=== PATIENT | male | born 1985 | race Caucasian/White ===

== ENCOUNTER → 2016-10-06 | Outpatient (CLI) | payer MEDICARE ==
[~2016-10-06] MED LIST: ACYCLOVIR400 MG PO; ALBUTEROL0.09 MG/A2 IH; AMOXICILLIN500 MG PO; ATARAX25 MG PO; ATIVAN1 MG PO; AUGMENTIN 500 M1 TAB PO; AUGMENTIN 875875 MG PO; BACTRIM DS 8001 TA1 PO; BENZTROPINE ME0.5 MG PO; CATAFLAM50 MG PO; CEFADROXIL500 M1 PO; CELEXA20 MG PO; CLEOCIN150 MG PO; CLINDAMYCIN HC300 MG PO; COGENTIN PO; COGENTIN0.5 MG PO; CORDROL20 MG PO; Cogentin0.5 MG PO; GEODON40 MG PO; HYDROCODONE BIT1 T11 PO; KEFLEX500 MG PO; LATUDA PO; MECLIZINE HCL25 M2 PO; MOTRIN800 MG PO; NAPROSYN500 MG PO; ONDANSETRON4 MG PO; PEPCID20 MG PO; PHENERGAN W/ DE30 ML PO; PREDNICOT10 MG PO; PREDNICOT20 MG PO; PREDNISONE20 MG PO; PRILOSEC20 M2 PO; PROAIR HFA0.09 MG/AC INH; RISPERDAL0.5 MG PO; TRAZADONE PO; TRAZODONE50 MG PO; ULTRAM50 MG PO; VALTREX1 GM PO; VICODIN 5/500 505 MG PO; VISTARIL25 MG PO; ZOFRAN ODT4 MG SL; ZOFRAN4 MG PO; ZYPREXA20 M1 PO; ZYPREXA20 MG PO; ZYRTEC10 M2 PO; Zofran4 MG PO
[2016-10-06 14:49] LABS: BASO # 0.1 10*3/uL (0.0-0.1); BASO % 0.6 % (0.0-1.0); EOS # 0.2 10*3/uL (0.0-0.4); EOS % 2.1 % (1.0-4.0); HEMATOCRIT 50.1 % (42.0-52.0); HEMOGLOBIN 16.4 g/dl (14.0-18.0); LYMPH # 2.7 10*3/uL (1.3-4.4); LYMPH % 31.3 % (27.0-41.0); MEAN CELL VOLUME 87.7 fl (80.0-94.0); MEAN CORPUSCULAR HGB 28.7 pg (27.0-31.0); MEAN CORPUSCULAR HGB CONC 32.7 g/dl (33.0-37.0); MEAN PLATELET VOLUME 11.1 fl (9.6-12.3); MONO # 0.6 10*3/uL (0.1-1.0); MONO % 7.4 % (3.0-9.0); NEUT % 58.1 % (47.0-73.0); PLATELET COUNT AUTOMATED 221 10*3/uL (130-400); RED BLOOD COUNT 5.71 10*6/uL (4.50-5.90); WHITE BLOOD COUNT 8.7 10*3/uL (4.8-10.8)
[2016-10-06 15:14] LABS: ALBUMIN 3.8 gm/dl (3.1-4.5); ALKALINE PHOSPHATASE 130 U/L (45-117); BILIRUBIN, DIRECT < 0.1 mg/dL (0.0-0.2); BILIRUBIN, TOTAL 0.4 mg/dl (0.2-1.0); BUN 8 mg/dl (7-24); CARBON DIOXIDE 30 mmol/L (21-32); CHLORIDE 107 mmol/L (98-107); CHOLESTEROL 158 mg/dL (<200); EST GLOM FILT AFRICAN AMERICAN > 60 ml/min; FREE T4 0.97 ng/dl (0.76-1.46); GLUCOSE 84 mg/dL (65-99); HDL CHOLESTEROL 38 mg/dl (40-60); LDL CHOLESTEROL 99 mg/dL (9-159); POTASSIUM 4.3 mmol/L (3.5-5.1); SGOT/AST 20 IU/L (3-35); SGPT/ALT 37 U/L (12-78); SODIUM 142 mmol/L (136-145); T3 UPTAKE 29 % (31-39); THYROID STIM HORMONE (HS) 0.711 uIU/ml (0.358-4.75); TOTAL PROTEIN 7.1 gm/dL (6.4-8.2); TRIGLYCERIDES 103 mg/dl (<150); VLDL CHOLESTEROL 21 mg/dL (6-40)
[2016-10-06 15:26] LABS: HEMOGLOBIN A1c 5.4 % (4.8-5.6)
== END | disposition home or self-care (01) ==
LOC: LAB 13:49
PROVIDERS: Nurse Practitioner Family
DX: Z79.899 Other long term (current) drug therapy (principal)

== ENCOUNTER 2017-05-26 01:52 | Emergency (ER) | payer MEDICARE ==
[~2017-05-26] VITALS: Ht 167.6 cm; Wt 83.9 kg
[2017-05-26] MEDS ORDERED: BACTRIM 400-801 EACH PO (02:14)
[2017-05-26] MEDS ORDERED: VIBRAMYCIN100 MG PO (02:15)
[2017-05-26] MEDS ORDERED: Motrin,Rufen800 MG PO (02:15)
== END 2017-05-26 02:32 | disposition home or self-care (01) ==
LOC: ED 01:52
DX: L02.415 Cutaneous abscess of right lower limb (principal); F12.10 Cannabis abuse, uncomplicated; Z79.899 Other long term (current) drug therapy; Z88.8 Allergy status to other drugs, medicaments and biological substances

== ENCOUNTER 2017-08-05 16:15 | Emergency (ER) | payer MEDICARE ==
[~2017-08-05] VITALS: Ht 167.6 cm; Wt 83.9 kg
[~2017-08-05 16:15] MED LIST changes: +BACTRIM 400-801 EACH PO; +Motrin,Rufen800 MG PO; +VIBRAMYCIN100 MG PO
== END 2017-08-05 16:26 | disposition home or self-care (01) ==
LOC: ED 16:15
DX: Z11.8 Encounter for screening for other infectious and parasitic diseases (principal); R03.0 Elevated blood-pressure reading, without diagnosis of hypertension; F17.200 Nicotine dependence, unspecified, uncomplicated; F10.10 Alcohol abuse, uncomplicated; F20.9 Schizophrenia, unspecified; F41.9 Anxiety disorder, unspecified; Z79.899 Other long term (current) drug therapy; Z88.8 Allergy status to other drugs, medicaments and biological substances

== ENCOUNTER 2017-10-30 22:50 | Emergency (ER) | payer MEDICARE ==
[~2017-10-30] VITALS: Ht 170.1 cm; Wt 86.2 kg
[2017-10-30 23:42] LABS: BASO # 0.1 10*3/uL (0.0-0.1); BASO % 0.5 % (0.0-1.0); EOS # 0.1 10*3/uL (0.0-0.4); HEMATOCRIT 46.1 % (42.0-52.0); HEMOGLOBIN 15.7 g/dl (14.0-18.0); LYMPH # 2.6 10*3/uL (1.3-4.4); LYMPH % 18.1 % (27.0-41.0); MEAN CELL VOLUME 86.3 fl (80.0-94.0); MEAN CORPUSCULAR HGB 29.4 pg (27.0-31.0); MEAN CORPUSCULAR HGB CONC 34.1 g/dl (33.0-37.0); MEAN PLATELET VOLUME 10.9 fl (9.6-12.3); MONO # 1.1 10*3/uL (0.1-1.0); MONO % 7.4 % (3.0-9.0); NEUT # 10.6 10*3/uL (2.3-7.9); NEUT % 72.5 % (47.0-73.0); PLATELET COUNT AUTOMATED 183 10*3/uL (130-400); RED BLOOD COUNT 5.34 10*6/uL (4.50-5.90); WHITE BLOOD COUNT 14.6 10*3/uL (4.8-10.8)
[2017-10-30 23:48] LABS: BILIRUBIN NEGATIVE (NEGATIVE); BLOOD NEGATIVE (NEGATIVE); CLARITY CLEAR (CLEAR); COLOR YELLOW (YELLOW); GLUCOSE NEGATIVE (NEGATIVE); KETONE NEGATIVE (NEGATIVE); LEUKO ESTERASE NEGATIVE (NEGATIVE); NITRITE NEGATIVE (NEGATIVE); PH 6.5 (5.0-9.0); UROBILINOGEN 0.2 E.U./dl (0.2-1.0)
[2017-10-30 23:53] LABS: BUN 8 mg/dl (7-24); CHLORIDE 103 mmol/L (98-107); CREATININE 0.87 mg/dL (0.70-1.30); SODIUM 137 mmol/L (136-145)
[2017-10-30 23:53] LABS: WBC 0-2 wbc/hpf (0-5)
[2017-10-30 23:54] LABS: ACETAMINOPHEN (TYLENOL) < 2.0 ug/ml (10-30); ETHYL ALCOHOL < 3.0 mg/dl (<3)
[2017-10-31 00:01] LABS: URINE AMPHETAMINES < 1000 (1000ng/ml); URINE BARBITURATES < 200 (200ng/ml); URINE BENZODIAZEPINES < 200 (200ng/ml); URINE CANNABINOIDS (THC) > 50 (50ng/ml); URINE COCAINE < 300 (300ng/ml); URINE METHADONE < 300 (300ng/ml); URINE OPIATES < 300 (300ng/ml)
[2017-10-31 00:07] LABS: URINE PHENCYCLIDINE < 25 (25ng/ml)
== END 2017-10-31 12:22 | disposition home or self-care (01) ==
LOC: ED 22:50
PROVIDERS: Emergency Medicine Emergency Medical Services
DX: R44.3 Hallucinations, unspecified (principal); F41.9 Anxiety disorder, unspecified; F20.9 Schizophrenia, unspecified; F17.200 Nicotine dependence, unspecified, uncomplicated; Z88.8 Allergy status to other drugs, medicaments and biological substances

== ENCOUNTER 2017-11-02 16:09 | Emergency (ER) | payer MEDICARE ==
[~2017-11-02] VITALS: Ht 167.6 cm; Wt 83.9 kg
[2017-11-02 16:44] LABS: BASO % 0.3 % (0.0-1.0); EOS % 0.1 % (1.0-4.0); HEMATOCRIT 49.2 % (42.0-52.0); HEMOGLOBIN 16.9 g/dl (14.0-18.0); LYMPH # 1.9 10*3/uL (1.3-4.4); LYMPH % 12.8 % (27.0-41.0); MEAN CORPUSCULAR HGB 29.2 pg (27.0-31.0); MEAN CORPUSCULAR HGB CONC 34.3 g/dl (33.0-37.0); MEAN PLATELET VOLUME 10.8 fl (9.6-12.3); MONO % 6.6 % (3.0-9.0); NEUT # 11.9 10*3/uL (2.3-7.9); NEUT % 79.7 % (47.0-73.0); PLATELET COUNT AUTOMATED 220 10*3/uL (130-400); RED BLOOD COUNT 5.79 10*6/uL (4.50-5.90); WHITE BLOOD COUNT 14.9 10*3/uL (4.8-10.8)
[2017-11-02 16:53] LABS: BILIRUBIN 1+ (NEGATIVE); BLOOD NEGATIVE (NEGATIVE); CLARITY CLEAR (CLEAR); COLOR YELLOW (YELLOW); GLUCOSE NEGATIVE (NEGATIVE); KETONE 1+ (NEGATIVE); LEUKO ESTERASE NEGATIVE (NEGATIVE); NITRITE NEGATIVE (NEGATIVE); SPECIFIC GRAVITY 1.015 (1.005-1.030); UROBILINOGEN 0.2 E.U./dl (0.2-1.0)
[2017-11-02 16:58] LABS: ALBUMIN 4.1 gm/dl (3.1-4.5); ALKALINE PHOSPHATASE 137 U/L (45-117); BUN 10 mg/dl (7-24); CHLORIDE 103 mmol/L (98-107); POTASSIUM 3.8 mmol/L (3.5-5.1); SGOT/AST 20 IU/L (3-35); SGPT/ALT 42 U/L (12-78); SODIUM 135 mmol/L (136-145)
[2017-11-02 17:02] LABS: URINE AMPHETAMINES < 1000 (1000ng/ml); URINE BARBITURATES < 200 (200ng/ml); URINE BENZODIAZEPINES < 200 (200ng/ml); URINE CANNABINOIDS (THC) > 50 (50ng/ml); URINE COCAINE < 300 (300ng/ml); URINE METHADONE < 300 (300ng/ml); URINE OPIATES < 300 (300ng/ml)
[2017-11-02 17:03] LABS: URINE PHENCYCLIDINE < 25 (25ng/ml)
[2017-11-02 17:15] LABS: ETHYL ALCOHOL < 3.0 mg/dl (<3)
[2017-11-02 17:17] LABS: BACTERIA TRACE; MUCOUS 1+
[2017-11-02] MEDS ORDERED: SERTRALINE HYDR50 MG PO (17:58)
[2017-11-02] MEDS ORDERED: OLANZAPINE20 M2 PO (17:58)
== END 2017-11-03 05:18 | disposition home health service (06) ==
LOC: ED 16:09
PROVIDERS: Emergency Medicine
DX: F23 Brief psychotic disorder (principal); F17.200 Nicotine dependence, unspecified, uncomplicated; F20.9 Schizophrenia, unspecified; F31.9 Bipolar disorder, unspecified; F41.9 Anxiety disorder, unspecified; F12.10 Cannabis abuse, uncomplicated; Z79.899 Other long term (current) drug therapy; Z88.8 Allergy status to other drugs, medicaments and biological substances; Z88.6 Allergy status to analgesic agent

== ENCOUNTER 2017-11-25 17:19 | Emergency (ER) | payer MEDICARE ==
[~2017-11-25] VITALS: Ht 167.6 cm; Wt 74.8 kg
[~2017-11-25 17:19] MED LIST changes: +OLANZAPINE20 M2 PO; +SERTRALINE HYDR50 MG PO
[2017-11-25] MEDS ORDERED: THORAZINE50 MG PO (17:31)
[2017-11-25] MEDS ORDERED: DEPAKOTE ER500 MG PO (17:31)
[2017-11-25] MEDS ORDERED: ZYPREXA15 M1 PO (17:31)
[2017-11-25] MEDS ORDERED: Lopressor25 MG PO (17:32)
[2017-11-25 17:52] LABS: BASO % 0.3 % (0.0-1.0); EOS # 0.1 10*3/uL (0.0-0.4); EOS % 0.8 % (1.0-4.0); HEMATOCRIT 45.4 % (42.0-52.0); HEMOGLOBIN 15.4 g/dl (14.0-18.0); LYMPH # 2.4 10*3/uL (1.3-4.4); MEAN CELL VOLUME 87.8 fl (80.0-94.0); MEAN CORPUSCULAR HGB 29.8 pg (27.0-31.0); MEAN CORPUSCULAR HGB CONC 33.9 g/dl (33.0-37.0); MEAN PLATELET VOLUME 10.8 fl (9.6-12.3); MONO # 1.1 10*3/uL (0.1-1.0); NEUT # 7.7 10*3/uL (2.3-7.9); NEUT % 67.2 % (47.0-73.0); PLATELET COUNT AUTOMATED 234 10*3/uL (130-400); RED BLOOD COUNT 5.17 10*6/uL (4.50-5.90); RED CELL DISTRI WIDTH 13.2 % (0-14.5); WHITE BLOOD COUNT 11.4 10*3/uL (4.8-10.8)
[2017-11-25 18:08] LABS: BUN 7 mg/dl (7-24); CHLORIDE 108 mmol/L (98-107); CREATININE 1.01 mg/dL (0.70-1.30); POTASSIUM 3.9 mmol/L (3.5-5.1); SODIUM 140 mmol/L (136-145)
[2017-11-25 18:09] LABS: ACETAMINOPHEN (TYLENOL) < 2.0 ug/ml (10-30); ETHYL ALCOHOL < 3.0 mg/dl (<3)
[2017-11-25 18:28] LABS: BILIRUBIN NEGATIVE (NEGATIVE); BLOOD NEGATIVE (NEGATIVE); CLARITY CLOUDY (CLEAR); COLOR YELLOW (YELLOW); GLUCOSE NEGATIVE (NEGATIVE); KETONE TRACE (NEGATIVE); LEUKO ESTERASE NEGATIVE (NEGATIVE); NITRITE NEGATIVE (NEGATIVE); UROBILINOGEN 0.2 E.U./dl (0.2-1.0)
[2017-11-25 18:34] LABS: BACTERIA 2+; WBC 0-2 wbc/hpf (0-5)
[2017-11-25 18:35] LABS: URINE AMPHETAMINES < 1000 (1000ng/ml); URINE BARBITURATES < 200 (200ng/ml); URINE BENZODIAZEPINES < 200 (200ng/ml); URINE CANNABINOIDS (THC) > 50 (50ng/ml); URINE COCAINE < 300 (300ng/ml); URINE METHADONE < 300 (300ng/ml); URINE OPIATES < 300 (300ng/ml)
[2017-11-25 18:36] LABS: URINE PHENCYCLIDINE < 25 (25ng/ml)
== END 2017-11-26 11:34 | disposition home health service (06) ==
LOC: ED 17:19
PROVIDERS: Emergency Medicine
DX: R45.851 Suicidal ideations (principal); F17.200 Nicotine dependence, unspecified, uncomplicated; Z88.8 Allergy status to other drugs, medicaments and biological substances; Z79.899 Other long term (current) drug therapy

== ENCOUNTER 2017-12-27 21:56 | Emergency (ER) | payer MEDICARE ==
[~2017-12-27] VITALS: Ht 167.6 cm; Wt 81.6 kg
[~2017-12-27 21:56] MED LIST changes: +DEPAKOTE ER500 MG PO; +Lopressor25 MG PO; +THORAZINE50 MG PO; +ZYPREXA15 M1 PO
[2017-12-27] MEDS ORDERED: PREDNISONE10 MG PO (23:34)
[2017-12-27] MEDS ORDERED: CYCLOBENZAPRINE5 M3 PO (23:34)
[2017-12-27] MEDS ORDERED: IBU800 MG PO (23:35)
[2017-12-27 23:38] LABS: BILIRUBIN NEGATIVE (NEGATIVE); BLOOD NEGATIVE (NEGATIVE); CLARITY CLEAR (CLEAR); COLOR YELLOW (YELLOW); GLUCOSE NEGATIVE (NEGATIVE); KETONE NEGATIVE (NEGATIVE); LEUKO ESTERASE NEGATIVE (NEGATIVE); NITRITE NEGATIVE (NEGATIVE); PH 7.5 (5.0-9.0); SPECIFIC GRAVITY <= 1.005 (1.005-1.030); UROBILINOGEN 0.2 E.U./dl (0.2-1.0)
[2017-12-27 23:49] LABS: BACTERIA TRACE; EPITHELIAL CELLS 0-2; RBC 0-2 rbc/hpf (0-2); WBC 0-2 wbc/hpf (0-5)
== END 2017-12-28 00:10 | disposition home or self-care (01) ==
LOC: ED 21:56
PROVIDERS: Nurse Practitioner
DX: M54.5 Low back pain (principal); Z71.6 Tobacco abuse counseling; Z88.8 Allergy status to other drugs, medicaments and biological substances; Z79.899 Other long term (current) drug therapy

== ENCOUNTER 2018-09-08 21:11 | Emergency (ER) | payer MEDICARE ==
[~2018-09-08] VITALS: Ht 170.1 cm; Wt 77.1 kg
--- NOTE | ~2018-09-08 | EKG ---
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
[~2018-09-08 21:11] MED LIST changes: +CYCLOBENZAPRINE5 M3 PO; +IBU800 MG PO; +PREDNISONE10 MG PO; +ZYPREXA10 M1 PO; -ZYPREXA15 M1 PO
[2018-09-08 21:40] LABS: BILIRUBIN NEGATIVE (NEGATIVE); BLOOD NEGATIVE (NEGATIVE); CLARITY CLEAR (CLEAR); COLOR YELLOW (YELLOW); GLUCOSE NEGATIVE (NEGATIVE); KETONE NEGATIVE (NEGATIVE); LEUKO ESTERASE NEGATIVE (NEGATIVE); NITRITE NEGATIVE (NEGATIVE); SPECIFIC GRAVITY 1.015 (1.005-1.030); UROBILINOGEN 0.2 E.U./dl (0.2-1.0)
[2018-09-08 21:49] LABS: URINE AMPHETAMINES < 1000 (1000ng/ml); URINE BARBITURATES < 200 (200ng/ml); URINE BENZODIAZEPINES < 200 (200ng/ml); URINE CANNABINOIDS (THC) > 50 (50ng/ml); URINE COCAINE < 300 (300ng/ml); URINE METHADONE < 300 (300ng/ml); URINE OPIATES < 300 (300ng/ml)
[2018-09-08 21:50] LABS: RBC 0-2 rbc/hpf (0-2); WBC 0-2 wbc/hpf (0-5)
[2018-09-08 21:50] LABS: BASO # 0.1 10*3/uL (0.0-0.1); BASO % 0.5 % (0.0-1.0); EOS % 0.2 % (1.0-4.0); HEMATOCRIT 48.6 % (42.0-52.0); HEMOGLOBIN 16.6 g/dl (14.0-18.0); LYMPH # 1.7 10*3/uL (1.3-4.4); LYMPH % 17.7 % (27.0-41.0); MEAN CELL VOLUME 85.4 fl (80.0-94.0); MEAN CORPUSCULAR HGB 29.2 pg (27.0-31.0); MEAN CORPUSCULAR HGB CONC 34.2 g/dl (33.0-37.0); MEAN PLATELET VOLUME 10.6 fl (9.6-12.3); MONO # 0.8 10*3/uL (0.1-1.0); MONO % 8.2 % (3.0-9.0); NEUT # 6.9 10*3/uL (2.3-7.9); NEUT % 73.1 % (47.0-73.0); PLATELET COUNT AUTOMATED 248 10*3/uL (130-400); RED BLOOD COUNT 5.69 10*6/uL (4.50-5.90); RED CELL DISTRI WIDTH 12.3 % (0-14.5); WHITE BLOOD COUNT 9.4 10*3/uL (4.8-10.8)
[2018-09-08 21:51] LABS: URINE PHENCYCLIDINE < 25 (25ng/ml)
[2018-09-08 22:03] LABS: ACETAMINOPHEN (TYLENOL) < 5.0 ug/ml (10-30); ALBUMIN 4.2 gm/dl (3.1-4.5); ALKALINE PHOSPHATASE 134 U/L (45-117); BUN 7 mg/dl (7-24); CHLORIDE 108 mmol/L (98-107); CPK 111 U/L (39-308); CREATININE 0.97 mg/dL (0.70-1.30); ETHYL ALCOHOL < 3.0 mg/dl (<3); POTASSIUM 3.9 mmol/L (3.5-5.1); SGOT/AST 22 IU/L (3-35); SGPT/ALT 41 U/L (12-78); SODIUM 138 mmol/L (136-145)
== END 2018-09-09 12:50 | disposition home health service (06) ==
LOC: ED 21:11
PROVIDERS: Emergency Medicine
DX: F25.9 Schizoaffective disorder, unspecified (principal); F31.9 Bipolar disorder, unspecified; F17.200 Nicotine dependence, unspecified, uncomplicated; Z88.8 Allergy status to other drugs, medicaments and biological substances; Z79.899 Other long term (current) drug therapy

== ENCOUNTER 2018-09-24 20:49 | Inpatient (IN) | payer MEDICARE ==
[~2018-09-24] VITALS: Ht 170.2 cm; Wt 87.3 kg
--- NOTE | ~2018-09-24 | PR ---
[place], [place] PROGRESS NOTE NAME: JOE DIAZ UNIT #: [id number] ROOM: [place] [address] DOCTOR: LEONA, PHD BRYCE BIRTHDATE: [birth year] DOS: I met with the patient for followup. He reports continued voices. Mood was stable and affect was blunted. He denied suicidal or homicidal ideation. He is agreeable to be transferred to inpatient psychiatric facility. He reported no concerns at this time. Kirstin Martinez, PhD CM:HUEY [phone] PHD BRYCE MARTINEZ 09/29/18 0021 interface
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
--- NOTE | ~2018-09-24 | PR ---
[place], [place] PROGRESS NOTE [id number] UNIT #: [id number] ROOM: [place] [address] DOCTOR: LEONA, PHD BRYCE BIRTHDATE: [birth year] DOS: 09/26/2018 SUBJECTIVE: The patient reports a decrease in hearing voices since starting Invega. He appeared to be somewhat vague in reporting his symptoms as he stated he does not want to remain in the hospital. He is here involuntarily; however, he denied current suicidal or homicidal ideations. Discussed the patient's thoughts about inpatient treatment, utilized CBT and supportive therapy interventions. He was somewhat receptive to feedback. We will continue to follow. Kirstin Martinez, PhD CM:HUEY [id number] PHD BRYCE MARTINEZ 09/28/18 0852 interface
--- NOTE | ~2018-09-24 | PR ---
[place], [place] PROGRESS NOTE NAME: JOE DIAZ UNIT #: [id number] ROOM: [place] [address] DOCTOR: LEONA, PHD WU BIRTHDATE: [birth year] DOS: 09/27/2018 SUMMARY: Followed up with the patient. He reports the voices continue to be not as bothersome; however, he was noted to be responding to internal stimuli earlier this morning by his nurse. He was vague and guarded and stated he did not want to talk about what was bothering him today. We will continue to follow. Kirstin Martinez, PhD CM:HUEY [id number] PHD BRYCE MARTINEZ 09/28/18 0432 interface
--- NOTE | ~2018-09-24 | EKG ---
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
[2018-09-24 20:53] VITALS: BP 150/96
[2018-09-24 21:10] LABS: HEMATOCRIT 46.4 % (42.0-52.0); HEMOGLOBIN 16.1 g/dl (14.0-18.0); MEAN CELL VOLUME 85.6 fl (80.0-94.0); MEAN CORPUSCULAR HGB 29.7 pg (27.0-31.0); MEAN CORPUSCULAR HGB CONC 34.7 g/dl (33.0-37.0); MEAN PLATELET VOLUME 10.3 fl (9.6-12.3); PLATELET COUNT AUTOMATED 255 10*3/uL (130-400); RED BLOOD COUNT 5.42 10*6/uL (4.50-5.90); RED CELL DISTRI WIDTH 12.1 % (0-14.5); WHITE BLOOD COUNT 24.7 10*3/uL (4.8-10.8)
--- NOTE | 2018-09-24 21:15 | NUR ---
PT HEARING VOICES,TALKING ABOUT DIVORCE,THEN SAYING ABOUT A WARRANT OUT FOR HIS ARREST (WHICH NOVELTY CHAIN MAKER PIERRE SAID IS NOT TRUE). HE STATES HE HASN'T ATE FOR 3 DAYS. 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 PT DOES NOT WANT ANY FAMILY/FRIENDS NOTIFIED THAT HE IS HERE. PT PLACE IN RM 2 IN EYE VIEW OF [facility] STATION. CORDS THAT ARE ABLE TO BE REMOVED FROM THE ROOM HAVE BEEN REMOVED.--NICOLE MOROCHO RN
[2018-09-24 21:20] VITALS: BP 152/97
[2018-09-24 21:29] LABS: ALBUMIN 4.2 gm/dl (3.1-4.5); ALKALINE PHOSPHATASE 107 U/L (45-117); ATYPICAL LYMPHS 2 % (0-0); BASOPHILS 1 % (0-1); BUN 14 mg/dl (7-24); CHLORIDE 97 mmol/L (98-107); CREATININE 1.22 mg/dL (0.70-1.30); PLATELET SUFFICIENCY NORMAL (NORMAL); POTASSIUM 3.5 mmol/L (3.5-5.1); SGOT/AST 79 IU/L (3-35); SGPT/ALT 42 U/L (12-78); SODIUM 133 mmol/L (136-145); TOTAL CELLS COUNTED 100 #CELLS; TOTAL PROTEIN 7.8 gm/dL (6.4-8.2)
[2018-09-24 21:31] LABS: ETHYL ALCOHOL < 3.0 mg/dl (<3)
[2018-09-24 21:32] LABS: ACETAMINOPHEN (TYLENOL) < 5.0 ug/ml (10-30)
[2018-09-24 22:10] LABS: BILIRUBIN NEGATIVE (NEGATIVE); BLOOD NEGATIVE (NEGATIVE); CLARITY SL CLOUDY (CLEAR); COLOR YELLOW (YELLOW); GLUCOSE NEGATIVE (NEGATIVE); KETONE 2+ (NEGATIVE); LEUKO ESTERASE NEGATIVE (NEGATIVE); NITRITE NEGATIVE (NEGATIVE); UROBILINOGEN 0.2 E.U./dl (0.2-1.0)
[2018-09-24 22:19] LABS: BACTERIA 1+; MUCOUS 2+
[2018-09-24 22:20] LABS: URINE AMPHETAMINES < 1000 (1000ng/ml); URINE BARBITURATES < 200 (200ng/ml); URINE BENZODIAZEPINES < 200 (200ng/ml); URINE CANNABINOIDS (THC) > 50 (50ng/ml); URINE COCAINE < 300 (300ng/ml); URINE METHADONE < 300 (300ng/ml); URINE OPIATES < 300 (300ng/ml)
[2018-09-24 22:21] LABS: URINE PHENCYCLIDINE < 25 (25ng/ml)
--- NOTE | 2018-09-24 22:22 | NUR ---
PT CONTINUES TO HEAR VOICES "THEY WANT ME TO TURN MYSELF IN,THEY ARE GOING TO HANG ME". PT TEARFUL AT TIMES,PACING IN ROOM. PT REASSURED NEEDED,REORIENTED IV FLUIDS STARTED AND IV BENADRYL GIVEN.SIDERAILS UP X2.-NICOLE MOROCHO RN
--- NOTE | 2018-09-24 22:25 | NUR ---
IV ATIVAN GIVEN ALSO.SEE EMAR. PT MOVED TO ROOM 5,CLOSER VIEW FROM [facility] STATION AND FOR PT TO HAVE A TV. HE DID EAT ABOUT 50% OF FOOD TRAY.PARESH HERNANDEZ HAS BEEN NOTIFIED OF THIS PT AND WILL BE IN TO SEE HIM TOMORROW.-NICOLE MOROCHO RN
[2018-09-24 22:40] LABS: ACT PARTIAL THROMBO TIME 27.5 SECONDS (20.8-31.5); INTERNATIONAL NORM RATIO 1.1 (2.0-3.5)
[2018-09-24 22:49] LABS: TROPONIN I 0.1 ng/ml (<0.045)
--- NOTE | 2018-09-24 22:50 | NUR ---
LAB CALLED WITH CRITICAL TROPONIN OF 0.100. DOCTOR NOTIFIED.
[2018-09-24 23:29] VITALS: BP 139/90
[2018-09-25] VITALS (7 sets, daily range): BP systolic 107–129; BP diastolic 60–77
--- NOTE | 2018-09-25 00:15 | NUR ---
PT WATCHING TV---NICOLE MOROCHO RN
[2018-09-25] MEDS ORDERED: BENZTROPINE MESY1 MG PO (00:48)
--- NOTE | 2018-09-25 01:00 | NUR ---
A 33, admitted to ICCU, under the services of JAZMIN Mitchell DO with a diagnosis of SIRS, RHABDOMYOLYSIS, SUICIDE ATTEMPT.. Chief complaint is VOICES TRYING TO CONVINCE HIM TO KILL HIMSELF. Patient arrived via stretcher from ER. Monitor applied. Initial assessment completed. Vital signs taken and recorded. JAZMIN MITCHELL DO notified of admission to the unit. Orders received. See assessment for past medical history, medications and allergies. Patient and/or family oriented to unit. [facility] ICCU visitation policy reviewed. Clothing/patient valuable form completed. ELVIE DAVIS
--- NOTE | 2018-09-25 02:26 | NUR ---
[facility] NOTIFIED OF CONSULT AND PARESH RODRIGUEZ NOTIFIED BY ER FOR HER CONSULT. ELVIE DAVIS RN
[2018-09-25 06:27] LABS: BASO # 0.1 10*3/uL (0.0-0.1); BASO % 0.4 % (0.0-1.0); EOS % 0.1 % (1.0-4.0); HEMATOCRIT 38.8 % (42.0-52.0); HEMOGLOBIN 13.3 g/dl (14.0-18.0); LYMPH # 3.8 10*3/uL (1.3-4.4); LYMPH % 26.8 % (27.0-41.0); MEAN CELL VOLUME 85.3 fl (80.0-94.0); MEAN CORPUSCULAR HGB 29.2 pg (27.0-31.0); MEAN CORPUSCULAR HGB CONC 34.3 g/dl (33.0-37.0); MONO # 1.8 10*3/uL (0.1-1.0); MONO % 12.7 % (3.0-9.0); NEUT # 8.3 10*3/uL (2.3-7.9); NEUT % 59.5 % (47.0-73.0); PLATELET COUNT AUTOMATED 203 10*3/uL (130-400); RED BLOOD COUNT 4.55 10*6/uL (4.50-5.90); RED CELL DISTRI WIDTH 12.1 % (0-14.5)
[2018-09-25 06:53] LABS: ALBUMIN 2.9 gm/dl (3.1-4.5); BUN 9 mg/dl (7-24); CHLORIDE 107 mmol/L (98-107); CHOLESTEROL 132 mg/dL (<200); CREATININE 0.79 mg/dL (0.70-1.30); PHOSPHOROUS 2.3 mg/dL (2.5-4.9); POTASSIUM 3.3 mmol/L (3.5-5.1); SGOT/AST 61 IU/L (3-35); SGPT/ALT 32 U/L (12-78); SODIUM 139 mmol/L (136-145); TRIGLYCERIDES 88 mg/dl (<150); VLDL CHOLESTEROL 18 mg/dL (6-40)
[2018-09-25 07:07] LABS: ALKALINE PHOSPHATASE 79 U/L (45-117); HDL CHOLESTEROL 34 mg/dl (40-60); LDL CHOLESTEROL 80 mg/dL (9-159); TOTAL PROTEIN 6.1 gm/dL (6.4-8.2)
[2018-09-25 07:20] LABS: CPK 2630 U/L (39-308)
--- NOTE | 2018-09-25 10:44 | NUR ---
TROP CONTINUE CONTINUE TO BE ELEVATED
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
[2018-09-25] MEDS ORDERED: ZYPREXA15 M1 PO (13:06)
[2018-09-25] MEDS ORDERED: TRILEPTAL300 MG PO (13:09)
--- NOTE | 2018-09-25 13:35 | NUR ---
POISON CONTROL NOTIFIED OF PT ADMISSION, PT HAS TOLD THE RESIDENT THAT HE OD'D ON HIS ZYPREXA,DEPOKOTE AND TRILEPTA BEFORE HE CAME TO THE ER LAST NIGHT AT 9PM PER POISON CONTROL-ALL MEDS WOULD ALREADY BE 'OUT OF HIS SYSTEM" BUT GO AHEAD AND CHECK ASA,TYELNOL AND DEPOKOTE LEVELS
--- NOTE | 2018-09-25 14:10 | NUR ---
MEDS RECONCILED FROM TALKING TO NICOLE TIMMONS
[2018-09-25 14:17] LABS: ACETAMINOPHEN (TYLENOL) < 5.0 ug/ml (10-30)
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
[2018-09-26] VITALS: BP 130/83
[2018-09-26 04:00] VITALS: BP 130/79
[2018-09-26 07:46] LABS: BASO # 0.1 10*3/uL (0.0-0.1); BASO % 0.5 % (0.0-1.0); EOS % 0.4 % (1.0-4.0); HEMOGLOBIN 12.3 g/dl (14.0-18.0); LYMPH # 2.1 10*3/uL (1.3-4.4); LYMPH % 20.8 % (27.0-41.0); MEAN CELL VOLUME 87.3 fl (80.0-94.0); MEAN CORPUSCULAR HGB CONC 33.2 g/dl (33.0-37.0); MEAN PLATELET VOLUME 10.1 fl (9.6-12.3); MONO # 1.2 10*3/uL (0.1-1.0); MONO % 12.3 % (3.0-9.0); NEUT # 6.4 10*3/uL (2.3-7.9); NEUT % 64.9 % (47.0-73.0); PLATELET COUNT AUTOMATED 183 10*3/uL (130-400); RED BLOOD COUNT 4.24 10*6/uL (4.50-5.90); RED CELL DISTRI WIDTH 12.4 % (0-14.5); WHITE BLOOD COUNT 9.9 10*3/uL (4.8-10.8)
[2018-09-26 07:58] LABS: ALKALINE PHOSPHATASE 76 U/L (45-117); BUN 5 mg/dl (7-24); CHLORIDE 111 mmol/L (98-107); PHOSPHOROUS 2.3 mg/dL (2.5-4.9); POTASSIUM 3.6 mmol/L (3.5-5.1); SGOT/AST 58 IU/L (3-35); SGPT/ALT 57 U/L (12-78); SODIUM 143 mmol/L (136-145); TOTAL PROTEIN 6.1 gm/dL (6.4-8.2)
[2018-09-26 08:00] VITALS: BP 151/82
[2018-09-26 08:12] LABS: CPK 1087 U/L (39-308)
--- NOTE | 2018-09-26 08:31 | NUR ---
PT AAOX3. RESP EASY. VSS. PT DENIES C/O PAIN OR SOB. WHEN ASKED PT STATES HE STILL HEARS "THE VOICES" BUT NOT BAD. WHEN I ASKED WHAT THEY ARE TELLING HIM HE STATED THAT THEY WANT HIM TO ...THEY WANT TO KILL HIM. I ASKED HIM HOW THEY ARE GOING TO KILL HIM HE STATED "THEY ARE GOING TO RIP OUT MY BUTTHOLE AND PULL MY UNSIDES OUT." I THEN ASKED HIM HOW "THE VOICES" COULD ACTUALLY KILL HIM..VOICES CAN NOT PHYSICALLY HURT HIM. HE DID NOT HAVE AN ANSWER FOR THAT. WHEN I MENTIONED THAT HE MIGHT HAVE TO GO FOR INPATIENT PHYSCH. TREATMENT HE STATED THAT WOULD NOT BE GOOD FOR HIM. I THEN ASKED HIM WHY AND INPT WOULD NOT BE GOOD FOR HIM AND HE STATED "THE VOICES DO NOT WANT HIM TO GO." THEN I TOLD HIM THAT IF THE VOICES ARE TELLING HIM TO HURT HIMSELF HE NEEDS INPT PSYCH TO HELP HEM GET RID OF THE VOICES. HE THEN STATED "THE VOICES ARE NOT BAD NOW...I CAN GO HOME...I'LL BE FINE"
--- NOTE | 2018-09-26 11:01 | NUR ---
MEDICATED PT PER PRN ORDER WITH IV ATIVAN FOR PT'S INCREASED ANXIETY AND AGITATION. DR RABAGO IN TO SEE PT EARLIER AND DISCUSSED PLAN OF CARE WITH PT. PT STATES HE WANTS TO GO HOME. DR RABAGO EXPLAINED THAT PT HAS + BLOOD CULTURES SO THAT MEANS HE HAS AN INFECTION AND HE NEEDS ANTIBIOTICS. PT NOT HAPPY WITH THE ANSWER. HE ALSO WANTS A CIGG. DR RABAGO TO ORDER NICATROL INHALER FOR PT.
--- NOTE | 2018-09-26 11:26 | NUR ---
MEDICATED PT PER PRN ORDER WITH QingKe INHALER FOR PT'S C/O NICOTINE WITHDRAWL.
--- NOTE | 2018-09-26 11:30 | NUR ---
PT RESTING. EARLIER ATIVAN EFFECTIVE.
[2018-09-26 11:50] VITALS: BP 149/85
--- NOTE | 2018-09-26 12:00 | NUR ---
PT STATES THAT THE NICATROL INHALER WAS EFFECTIVE FOR HIS WITHDRAWL SYMPTOMS.
--- NOTE | 2018-09-26 15:52 | NUR ---
MEDICATED PT PER PRN ORDER WITH ATIVAN FOR PT'S INCREASED ANXIETY AND AGITATION.
[2018-09-26 16:00] VITALS: BP 150/90
--- NOTE | 2018-09-26 16:15 | NUR ---
DR FINNEGAN UPDATED ON PT'S BP 150/90. HE STATED HE WILL WATCH IT.
--- NOTE | 2018-09-26 16:19 | NUR ---
PT STATES SOME RELIEF OF EARLIER ANXIETY AND AGITATION WITH EARLIER ATIVAN.
--- NOTE | 2018-09-26 18:33 | NUR ---
PT STATED "WELL I GUESS I HAVE A SENTANCE AGAINST ME." I ASKED PT HOW HE CAME TO THIS CONCLUSION. PT STATED "THE VOICES ARE TELLING ME I HAVE A SENTANCE AGAINST ME." I ASKED WHO IS GOING TO KILL YOU? "THE VOICES" PT STATED. ONCE AGAIN I INFORMED THE PT THAT THE VOICES CAN NOT PHYSICALLY TOUCH HIM SO HOW ARE THEY GOING TO KILL HIM? HE STATED I DON'T KNOW.
[2018-09-26 20:00] VITALS: BP 161/95
--- NOTE | 2018-09-26 20:00 | NUR ---
PATIENT STATES THE VOICES WANT HIM ...INFORMED PATIENT HE IS IN HOSPITAL AND HE IS NOT GOING ANYWHERE TONIGHT.
--- NOTE | 2018-09-26 21:28 | NUR ---
MEDICATED WITH PRN ATIVAN PER ORDER NAD REQUEST.
[2018-09-27] VITALS: BP 145/80
[2018-09-27 04:00] VITALS: BP 132/84
[2018-09-27 05:00] LABS: ALBUMIN 2.6 gm/dl (3.1-4.5); BUN 6 mg/dl (7-24); CHLORIDE 111 mmol/L (98-107); CREATININE 0.78 mg/dL (0.70-1.30); POTASSIUM 3.6 mmol/L (3.5-5.1); SODIUM 143 mmol/L (136-145)
[2018-09-27 05:03] LABS: PHOSPHOROUS 3.7 mg/dL (2.5-4.9)
[2018-09-27 05:04] LABS: CPK 593 U/L (39-308)
[2018-09-27 08:00] VITALS: BP 146/84
--- NOTE | 2018-09-27 08:00 | NUR ---
PT AAOX3. VSS. PT CONTINUES TO HEAR VOICES. PT WAS CRYING AND APOLOGIZING TO THE VOICES FOR THINGS HE SAYS THAT HE SAID BUT DIDN'T MEAN. PT AGAIN ASKING WHEN HE CAN GO HOME. I INFORMED PT WE WOULD ASK DR BROWN WHEN HE COMES IN.
--- NOTE | 2018-09-27 08:00 | NUR ---
PT AAOX3. VSS. PT CONTINUES TO HEAR VOICES. PT CRYING AND UPSET EARLIER. PT WAS APOLOGIZING TO THE VOICES. WHEN ASKED WHAT IS WRONG ,PT STATED HE WAS APOLOGIZING FOR THINGS HE SAID IN HIS HEAD TO THE VOICES THAT HE DID NOT REALLY MEAN. PT AGAIN ASKING WHEN HE CAN GO HOME. I INFORMED HIM WE WOULD ASK THE DOCTOR WHEN HE MAKES ROUNDS.
--- NOTE | 2018-09-27 09:49 | NUR ---
DR FINNEGAN NOTIFIED EARLIER OF BLOOD CULTURE RESULTS.
--- NOTE | 2018-09-27 11:30 | NUR ---
PT STATING THAT "SOMETHING IS BOTHERING ME." HE STATES HE DOES NOT FEEL LIKE TALKING ABOUT IT AT THIS TIME. I OFFERED PT IV ATIVAN FOR HIS ANXIETY AND BIENG UPSET. HE REFUSED AT THIS TIME. DR DELGADILLO IN TO SEE PT AND PT REFUSED TO SPEAK ABOUT WHAT WAS BOTHERING HIM WITH HER ALSO. WILL CONTINUE TO MONITOR PT.
[2018-09-27 12:00] VITALS: BP 160/94
--- NOTE | 2018-09-27 12:03 | NUR ---
DR FINNEGAN UPDATED ON PT'S BP 160/94 AND PT'S STATING HE HAS SOMETHING BOTHERING HIM BUT DOES NOT WISH TO TALK ABOUT IT. DR FINNEGAN OREDRED TO GIVE PT IV ATIVAN. IV ATIVAN GIVEN TO PT AFTER UPDATING HIM ABOUT HIS INCREASED BP THAT COULD BE R/T PT'S BIENG UPSET. PT AGREED AT THIS TIME FOR THE ATIVAN.
--- NOTE | 2018-09-27 13:01 | NUR ---
PT RESTING. EARLIER ATIVAN SEEMS EFFECTIVE FOR EARLIER SYMPTOMS.
--- NOTE | 2018-09-27 13:34 | NUR ---
met with client, he is pink slipped to here for evaluation and has been evaluated here and determined that he should go to an inpatient psych unit when he is medically stable, i cannot make those arrangements until he is stable, i did speak with [facility] and they are not inclined to get involved because he is not a self pay, [facility] the cardiopulmonary technician relayed to me that he cant give me legal advice but suggested that we could renew the pink slip, which i have never known to be legal, but that is all that he could give me. i did speak with Rika freedman about the case several times today, i came to visit client and we talked about his feelings, he said that he is willing to stay to get medical clearance and then he agrees that i will find him psych bed, but he wavers back and forth. i explained to him that he needs to have care because he tried to harm himself and he is still hearing voices, he acknowledges that the voices are "messing with him: he tell me that he knows he did not harm anyone so he thinks that voices told him about that girl. client will just need reassurance. i did speak with dr espinsoa who said that they are working to medically clear him and they will call me as soon as he is, then once i get an accepting psychaitrist at another faciility then he can be pink slipped to that unit or i can ask him to sign a voluntary if that is what they request. i will look at [facility] to take him back as he was just there and recently dc from there and they typically have beds.
[2018-09-27 16:00] VITALS: BP 148/86
[2018-09-27 20:00] VITALS: BP 164/96
--- NOTE | 2018-09-27 20:20 | NUR ---
PT. RESTING IN BED. IVF INFUSING VIA RA, SITE ASYMPT. LUNGS CLEAR BUT DIMINISHED BILAT, PUOLSE OX 94% ON RA. ABDOMEN SOFT, NONDISTENDED AND NORMO. NO PERIPHERAL EDEMA NOTED. RESP. EASY AND REG NO DISTRESS. ELVIE DAVIS RN
[2018-09-28] VITALS: BP 157/91
[2018-09-28 04:00] VITALS: BP 162/91
[2018-09-28 05:01] LABS: BUN 4 mg/dl (7-24); CHLORIDE 110 mmol/L (98-107); CREATININE 0.92 mg/dL (0.70-1.30); POTASSIUM 3.6 mmol/L (3.5-5.1); SODIUM 143 mmol/L (136-145)
[2018-09-28 05:08] LABS: CPK 320 U/L (39-308)
[2018-09-28 08:00] VITALS: BP 158/100
--- NOTE | 2018-09-28 08:56 | NUR ---
DR FINNEGAN AWARE OF CONTINUED ELEVATED BP, AND WANTS PT TO HAVE IV ATIVAN AND HAS ORDERED ZESTRIL, PT HAS NOT BEEN AGITATED, REFUSES TO EAT-"NOT HUNGRY"
[2018-09-28 10:11] VITALS: BP 167/101
--- NOTE | 2018-09-28 12:09 | NUR ---
TO BE DISCHARGED TO INPATIENT MENTAL MAHIN
[2018-09-28] MEDS ORDERED: LISINOPRIL10 M1 PO (12:27)
[2018-09-28] MEDS ORDERED: PALIPERIDONE ER6 MG PO (12:27)
--- NOTE | 2018-09-28 15:52 | NUR ---
DISCHARGED WITH [facility] TO GO TO [facility] INPATIENT ALL BELONGINGS SENT WITH PT PT REFUSES PIC OF SCRATCH ON NOSE
== END 2018-09-28 16:12 | disposition home health service (06) | DRG 872 ==
LOC: ED 20:49 → EDHOLD 23:54 → ICCU 23:54
PROVIDERS: Internal Medicine; Internal Medicine Nephrology; Student in an Organized Health Care Education/Training Program; ADMIT Internal Medicine
DX: A41.9 Sepsis, unspecified organism (principal); E87.1 Hypo-osmolality and hyponatremia; E44.0 Moderate protein-calorie malnutrition; T79.6XXA Traumatic ischemia of muscle, initial encounter; D64.9 Anemia, unspecified; F41.9 Anxiety disorder, unspecified; F12.10 Cannabis abuse, uncomplicated; F31.9 Bipolar disorder, unspecified; E87.6 Hypokalemia; F25.9 Schizoaffective disorder, unspecified; E87.8 Other disorders of electrolyte and fluid balance, not elsewhere classified; R73.03 Prediabetes; F17.210 Nicotine dependence, cigarettes, uncomplicated; E83.39 Other disorders of phosphorus metabolism; T14.91XA Suicide attempt, initial encounter; X83.8XXA Intentional self-harm by other specified means, initial encounter; Y93.89 Activity, other specified; Y99.8 Other external cause status; Z71.6 Tobacco abuse counseling; Z82.3 Family history of stroke; Z81.8 Family history of other mental and behavioral disorders; Z88.8 Allergy status to other drugs, medicaments and biological substances; Z79.899 Other long term (current) drug therapy; Y92.098 Other place in other non-institutional residence as the place of occurrence of the external cause; Z83.3 Family history of diabetes mellitus; Z82.49 Family history of ischemic heart disease and other diseases of the circulatory system; Z68.30 Body mass index [BMI] 30.0-30.9, adult

== ENCOUNTER → 2019-01-31 | Outpatient (CLI) | payer MEDICARE ==
[~2019-01-31] MED LIST changes: +BENZTROPINE MESY1 MG PO; +LISINOPRIL10 M1 PO; +PALIPERIDONE ER6 MG PO; +TRILEPTAL300 MG PO; +ZYPREXA15 M1 PO
== END | disposition home or self-care (01) ==
LOC: LAB 15:52
DX: Z79.899 Other long term (current) drug therapy (principal)

== ENCOUNTER → 2019-09-17 | Outpatient (CLI) | payer MEDICARE ==
[2019-09-17 16:04] LABS: BASO # 0.1 10*3/uL (0.0-0.1); BASO % 0.7 % (0.0-1.0); EOS # 0.1 10*3/uL (0.0-0.4); EOS % 1.2 % (1.0-4.0); HEMATOCRIT 50.5 % (42.0-52.0); HEMOGLOBIN 17.3 g/dl (14.0-18.0); LYMPH # 2.7 10*3/uL (1.3-4.4); LYMPH % 36.1 % (27.0-41.0); MEAN CELL VOLUME 86.6 fl (80.0-94.0); MEAN CORPUSCULAR HGB 29.7 pg (27.0-31.0); MEAN CORPUSCULAR HGB CONC 34.3 g/dl (33.0-37.0); MEAN PLATELET VOLUME 10.8 fl (9.6-12.3); MONO # 0.7 10*3/uL (0.1-1.0); MONO % 9.7 % (3.0-9.0); NEUT # 3.8 10*3/uL (2.3-7.9); NEUT % 51.2 % (47.0-73.0); PLATELET COUNT AUTOMATED 222 10*3/uL (130-400); RED BLOOD COUNT 5.83 10*6/uL (4.50-5.90); RED CELL DISTRI WIDTH 12.1 % (0-14.5); WHITE BLOOD COUNT 7.5 10*3/uL (4.8-10.8)
[2019-09-17 16:35] LABS: ALBUMIN 3.4 gm/dl (3.1-4.5); ALKALINE PHOSPHATASE 141 U/L (45-117); BILIRUBIN, DIRECT 0.1 mg/dL (0.0-0.2); BUN 6 mg/dl (7-24); CHLORIDE 105 mmol/L (98-107); CHOLESTEROL 267 mg/dL (<200); HDL CHOLESTEROL 29 mg/dl (40-60); POTASSIUM 3.8 mmol/L (3.5-5.1); SGOT/AST 12 IU/L (3-35); SGPT/ALT 19 U/L (12-78); SODIUM 136 mmol/L (136-145); TOTAL PROTEIN 6.9 gm/dL (6.4-8.2); TRIGLYCERIDES 745 mg/dl (<150); VALPROIC ACID (DEPAKENE) 52.7 ug/ml (50-100)
== END | disposition home or self-care (01) ==
LOC: LAB 15:28
PROVIDERS: Nurse Practitioner Family
DX: Z79.899 Other long term (current) drug therapy (principal)

== ENCOUNTER → 2019-09-28 | Outpatient (CLI) | payer MEDICARE | LOC: RESCLI 00:42 | DX: Z76.89 Persons encountering health services in other specified circumstances (principal); E11.9 Type 2 diabetes mellitus without complications; E78.2 Mixed hyperlipidemia; I10 Essential (primary) hypertension; F12.90 Cannabis use, unspecified, uncomplicated; Z72.0 Tobacco use; Z71.6 Tobacco abuse counseling; Z79.899 Other long term (current) drug therapy; Z88.8 Allergy status to other drugs, medicaments and biological substances ==

== ENCOUNTER 2019-11-09 14:57 | Emergency (ER) | payer MEDICARE ==
[~2019-11-09] VITALS: Ht 167.6 cm; Wt 86.2 kg
== END 2019-11-09 16:20 | disposition home or self-care (01) ==
LOC: ED 14:57
DX: H61.22 Impacted cerumen, left ear (principal); F17.200 Nicotine dependence, unspecified, uncomplicated; Z88.8 Allergy status to other drugs, medicaments and biological substances; Z79.899 Other long term (current) drug therapy

== ENCOUNTER 2019-12-26 21:31 | Emergency (ER) | payer MEDICARE | END 2019-12-26 21:55 | LOC: ED 21:31 | DX: Z53.21 Procedure and treatment not carried out due to patient leaving prior to being seen by health care provider (principal) ==

== ENCOUNTER 2020-01-22 01:00 | Inpatient (IN) | payer MEDICARE ==
[2020-01-22] VITALS (8 sets, daily range): BP systolic 107–146; BP diastolic 70–88
[~2020-01-22] VITALS: Ht 167.6 cm; Wt 71.4 kg
--- NOTE | 2020-01-22 01:23 | NUR ---
All clothes but underwear and socks removed at this time.
[2020-01-22 01:31] LABS: BASO # 0.1 10*3/uL (0.0-0.1); BASO % 0.4 % (0.0-1.0); EOS # 0.1 10*3/uL (0.0-0.4); EOS % 0.3 % (1.0-4.0); HEMATOCRIT 41.8 % (42.0-52.0); LYMPH # 3.5 10*3/uL (1.3-4.4); LYMPH % 20.1 % (27.0-41.0); MEAN CELL VOLUME 86.9 fl (80.0-94.0); MEAN CORPUSCULAR HGB 31.2 pg (27.0-31.0); MEAN CORPUSCULAR HGB CONC 35.9 g/dl (33.0-37.0); MEAN PLATELET VOLUME 10.6 fl (9.6-12.3); MONO # 1.5 10*3/uL (0.1-1.0); MONO % 8.5 % (3.0-9.0); NEUT # 12.2 10*3/uL (2.3-7.9); NEUT % 70.1 % (47.0-73.0); PLATELET COUNT AUTOMATED 215 10*3/uL (130-400); RED BLOOD COUNT 4.81 10*6/uL (4.50-5.90); RED CELL DISTRI WIDTH 12.2 % (0-14.5); WHITE BLOOD COUNT 17.4 10*3/uL (4.8-10.8)
--- NOTE | 2020-01-22 01:34 | NUR ---
Pt states he is unable to void at this time.
--- NOTE | 2020-01-22 01:40 | NUR ---
ok with no sitter at this time for pt.
[2020-01-22 01:45] LABS: ALBUMIN 3.8 gm/dl (3.1-4.5); ALKALINE PHOSPHATASE 82 U/L (45-117); BUN 6 mg/dl (7-24); CHLORIDE 94 mmol/L (98-107); CREATININE 0.63 mg/dL (0.70-1.30); POTASSIUM 3.8 mmol/L (3.5-5.1); SGOT/AST 25 IU/L (3-35); SGPT/ALT 39 U/L (12-78); SODIUM 123 mmol/L (136-145)
--- NOTE | 2020-01-22 01:45 | NUR ---
Belongings placed in stockroom at this time and 3 bags of clothing removed including jacket, jeans shirt and wallet which just had bag at this time.
[2020-01-22 01:54] LABS: ACETAMINOPHEN (TYLENOL) < 5.0 ug/ml (10-30); ETHYL ALCOHOL < 3.0 mg/dl (<3)
--- NOTE | 2020-01-22 01:58 | NUR ---
No open wounds noted but a bump noted underneath each armpit but it is not open at this time.
--- NOTE | 2020-01-22 02:11 | NUR ---
in to see pt.Pt stated he is going to halfway and is going to turn in vegetable pt also saying he wants to leave at this time.Md stated she would pink slip pt at this time.
--- NOTE | 2020-01-22 02:15 | NUR ---
Currently sitting within reach near pts bedside.
[2020-01-22 02:35] LABS: BILIRUBIN NEGATIVE (NEGATIVE); BLOOD NEGATIVE (NEGATIVE); CLARITY CLEAR (CLEAR); COLOR STRAW (YELLOW); GLUCOSE NEGATIVE (NEGATIVE); KETONE 2+ (NEGATIVE); LEUKO ESTERASE NEGATIVE (NEGATIVE); NITRITE NEGATIVE (NEGATIVE); SPECIFIC GRAVITY 1.005 (1.005-1.030); UROBILINOGEN 0.2 E.U./dl (0.2-1.0)
[2020-01-22 02:36] LABS: URINE AMPHETAMINES < 1000 (1000ng/ml); URINE BARBITURATES < 200 (200ng/ml); URINE BENZODIAZEPINES < 200 (200ng/ml); URINE CANNABINOIDS (THC) < 50 (50ng/ml); URINE COCAINE < 300 (300ng/ml); URINE METHADONE < 300 (300ng/ml); URINE OPIATES < 300 (300ng/ml)
[2020-01-22 02:37] LABS: BACTERIA TRACE; EPITHELIAL CELLS 0-2; RBC 0-2 rbc/hpf (0-2); WBC 0-2 wbc/hpf (0-5)
[2020-01-22 02:41] LABS: URINE PHENCYCLIDINE < 25 (25ng/ml)
--- NOTE | 2020-01-22 03:24 | NUR ---
Transfern care to Qiana moyer
--- NOTE | 2020-01-22 04:22 | NUR ---
PATIENT IN BED EATING BOX LUNCH AT THIS TIME. NO ACUTE DISTRESS NOTED. AOX3. RN WILL CONT TO MONITOR.
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
--- NOTE | 2020-01-22 06:10 | NUR ---
PATIENT IN BED RESTING EYES AT THIS TIME. NO DISTRESS NOTED. IN VIEW OF NURSES STATION. RESP EASY AND NONLABORED. RN WILL CONT TO MONITOR
--- NOTE | 2020-01-22 07:30 | NUR ---
PT RESTING WITH EYES CLOSED, NO DISTRESS NOTED. 1:1 AT THE BEDSIDE. BREAKFAST ORDERDED.
--- NOTE | 2020-01-22 09:25 | NUR ---
A 34, admitted to ICCU, under the services of JAZMIN Mitchell DO with a diagnosis of ACUTE PSYCHOSIS,SUICIDAL IDEATIONS,METABOLIC ENCEPHALOPATHY,HYPONATREMIA. Chief complaint is HEARING VOICES AND HAS SUICIDAL IDEATIONS. Patient arrived via stretcher from ER. Monitor applied. Initial assessment completed. Vital signs taken and recorded. JAZMIN MITCHELL DO notified of admission to the unit. Orders received. See assessment for past medical history, medications and allergies. Patient and/or family oriented to unit. [facility] ICCU visitation policy reviewed. Clothing/patient valuable form completed. PARESH WEINER
--- NOTE | 2020-01-22 09:40 | NUR ---
KAREN IS AWARE OF CONSULT. ER STATED PARESH HERNANDEZ IS AWARE.
[2020-01-22] MEDS ORDERED: DEPAKOTE500 MG PO (10:04)
[2020-01-22] MEDS ORDERED: VISTARIL25 MG PO (10:05)
[2020-01-22] MEDS ORDERED: JANUVIA50 MG PO (10:06)
[2020-01-22] MEDS ORDERED: ZYPREXA10 M1 PO ×2 (10:06→10:07)
[2020-01-22] MEDS ORDERED: METFORMIN HYDR500 MG PO (10:07)
[2020-01-22] MEDS ORDERED: LIPITOR20 MG PO (10:08)
[2020-01-22] MEDS ORDERED: ZESTRIL,PRINIVIL5 MG PO (10:08)
--- NOTE | 2020-01-22 10:20 | NUR ---
DR. MANOJ MCLEAN FOR CONSULT.
--- NOTE | 2020-01-22 12:34 | NUR ---
MEDICATED WITH PRN VISTARIL PER ORDER AND REQUEST.
[2020-01-22 12:45] LABS: URINE CHLORIDE, RANDOM < 10 mmol/L
--- NOTE | 2020-01-22 12:58 | NUR ---
DR. BURGOS HERE SEEING PATIENT.
--- NOTE | 2020-01-22 14:00 | NUR ---
DR. DUARTE HERE ROUNDING.
[2020-01-22 14:53] LABS: BUN 9 mg/dl (7-24); CHLORIDE 104 mmol/L (98-107); CREATININE 0.89 mg/dL (0.70-1.30); POTASSIUM 4.1 mmol/L (3.5-5.1)
[2020-01-22 15:05] LABS: SODIUM 136 mmol/L (136-145)
--- NOTE | 2020-01-22 18:04 | NUR ---
CALLED PARESH KANG TO MAKE SURE AWARE OF PATIENT.
[2020-01-22 19:25] LABS: BUN 13 mg/dl (7-24); CHLORIDE 105 mmol/L (98-107); CREATININE 0.81 mg/dL (0.70-1.30); POTASSIUM 4.1 mmol/L (3.5-5.1); SODIUM 137 mmol/L (136-145)
--- NOTE | 2020-01-22 19:51 | NUR ---
RESTING IN BED IN LINE OF SIGHT OF STAFF. PT WITHOUT COMPLAINTS OR EXPRESSIONS OF SUICIDAL IDEATION.
--- NOTE | 2020-01-22 23:55 | NUR ---
VISTARIL AND NICODERM PATCH AT 0 PER PT REQUEST FOR ANXIETY AND SMOKING URGES "A LITTLE BIT" EFFECTIVE PER PT. AFTER VS TAKEN, HE IS EATING A BOXED LUNCH.
[2020-01-23] VITALS: BP 116/76
[2020-01-23 04:00] VITALS: BP 95/59
[2020-01-23 05:59] LABS: BUN 17 mg/dl (7-24); CHLORIDE 103 mmol/L (98-107); CREATININE 0.62 mg/dL (0.70-1.30); SODIUM 135 mmol/L (136-145)
[2020-01-23 06:10] LABS: HEMATOCRIT 39.9 % (42.0-52.0); MEAN CELL VOLUME 89.9 fl (80.0-94.0); MEAN CORPUSCULAR HGB 30.9 pg (27.0-31.0); MEAN CORPUSCULAR HGB CONC 34.3 g/dl (33.0-37.0); MEAN PLATELET VOLUME 11.3 fl (9.6-12.3); PLATELET COUNT AUTOMATED 179 10*3/uL (130-400); RED BLOOD COUNT 4.44 10*6/uL (4.50-5.90); WHITE BLOOD COUNT 9.9 10*3/uL (4.8-10.8)
[2020-01-23 06:46] LABS: PLATELET SUFFICIENCY NORMAL (NORMAL); TOTAL CELLS COUNTED 100 #CELLS
[2020-01-23 08:00] VITALS: BP 99/40
--- NOTE | 2020-01-23 09:48 | NUR ---
Nutritional Support Services Note: Pt states that he has had a loss of appetite and has recently lost 34#. Dx of acute psychosis, suidical ideations,metabolic encephalopathy. Hx of DM. Current BS at 115. HT.5'6 Wt.158#. IBW 132-152. He has no signs of malnutrition at this time. Albumin is wnl as well as protein level. Staff to encourage intake and honor food preferences. 1800cal diet as ordered appropriate at this time. Will provide pt with a night snack. Will follow as needed. Sonali Arevalo Rdn Ld
--- NOTE | 2020-01-23 10:10 | NUR ---
psychiatric assessment: met with client who is known to me, he has been in the er before for the same issues and i last sent him to inpatient in [place]. client gets services from the [facility], but he said he doesnt think his medications are working. he used to drink and he tells me he has not been drinking anymore. he is A&O x4, he is pleasant and cooperative., he said that he has been upset and hearing the voices again that tell him that he is going to be tortured and a terrible so he plans to kill himself before that happen. he said that he was thinking of overdosing or anything that he can do to . he said that he cant stop thinking about it. this client would meet criteria for an inpatient admission to a psych unit, i will make referrals as soon as he is medically stable.
--- NOTE | 2020-01-23 11:42 | NUR ---
DR ARANDA HERE, MEDICALLY CLEARED PT FOR JUSTEN HERNANDEZ NOTIFIED AND SHE WILL FIND HIM A PLACE TO GO
[2020-01-23 12:00] VITALS: BP 92/54
--- NOTE | 2020-01-23 12:00 | NUR ---
PARESH KANG CALLED IN,[facility] IS REQUESTED A RAPID COVID TEST (WHICH WAS NEGATIVE) AND A PINK SLIP
--- NOTE | 2020-01-23 13:29 | NUR ---
referred client to [facility]. faxed information and will wait for response.
[2020-01-23 16:00] VITALS: BP 107/66
--- NOTE | 2020-01-23 17:05 | NUR ---
REPORT TO SERGIO AT [facility] PT TO [facility] A ADULT UNIT
--- NOTE | 2020-01-23 17:07 | NUR ---
ATTEMPTED TO CALL MOTHER-RUTHANN, NO ANSWER AT GIVEN NUMBER AND NO MESSAGE LEFT ON THE MACHINE IT DID NOT CONFIRM THE INTENDED PERSON TO TALK TO
[2020-01-23] MEDS ORDERED: OLANZAPINE10 MG PO (17:10)
[2020-01-23] MEDS ORDERED: PALIPERIDONE ER6 MG PO (17:10)
[2020-01-23] MEDS ORDERED: DIVALPROEX SOD500 MG PO (17:10)
--- NOTE | 2020-01-23 18:08 | NUR ---
DC TO [facility] IN CARE OF [facility] PT HAD TALKED WITH MOTHER REGARDING TRANSFER
== END 2020-01-23 18:08 | disposition home health service (06) | DRG 640 ==
LOC: ED 01:00 → ICCU 08:52 → EDHOLD 08:52 → ICCU 09:18
PROVIDERS: Emergency Medicine; Internal Medicine Nephrology; Student in an Organized Health Care Education/Training Program; ADMIT Internal Medicine
DX: E87.1 Hypo-osmolality and hyponatremia (principal); G93.41 Metabolic encephalopathy; F23 Brief psychotic disorder; R45.851 Suicidal ideations; R65.10 Systemic inflammatory response syndrome (SIRS) of non-infectious origin without acute organ dysfunction; E87.8 Other disorders of electrolyte and fluid balance, not elsewhere classified; F25.1 Schizoaffective disorder, depressive type; F31.9 Bipolar disorder, unspecified; F41.9 Anxiety disorder, unspecified; R63.4 Abnormal weight loss; I10 Essential (primary) hypertension; E78.5 Hyperlipidemia, unspecified; F17.210 Nicotine dependence, cigarettes, uncomplicated; E11.65 Type 2 diabetes mellitus with hyperglycemia; Z71.6 Tobacco abuse counseling; Z88.8 Allergy status to other drugs, medicaments and biological substances; Z91.5 Personal history of self-harm; Z82.3 Family history of stroke; Z83.3 Family history of diabetes mellitus; Z82.49 Family history of ischemic heart disease and other diseases of the circulatory system; Z81.8 Family history of other mental and behavioral disorders; Z79.899 Other long term (current) drug therapy; Z68.25 Body mass index [BMI] 25.0-25.9, adult

== ENCOUNTER → 2020-04-01 | Outpatient (CLI) | payer MEDICARE ==
[~2020-04-01] MED LIST changes: +DEPAKOTE500 MG PO; +DIVALPROEX SOD500 MG PO; +JANUVIA50 MG PO; +LIPITOR20 MG PO; +METFORMIN HYDR500 MG PO; +OLANZAPINE10 MG PO; +ZESTRIL,PRINIVIL5 MG PO
== END | disposition home or self-care (01) ==
LOC: RESCLI 02:36
DX: E11.9 Type 2 diabetes mellitus without complications (principal); I10 Essential (primary) hypertension; E78.2 Mixed hyperlipidemia; R63.4 Abnormal weight loss; F31.9 Bipolar disorder, unspecified; F20.0 Paranoid schizophrenia; G62.9 Polyneuropathy, unspecified; F51.05 Insomnia due to other mental disorder; F99 Mental disorder, not otherwise specified; F17.200 Nicotine dependence, unspecified, uncomplicated; Z79.84 Long term (current) use of oral hypoglycemic drugs; Z79.899 Other long term (current) drug therapy; Z88.8 Allergy status to other drugs, medicaments and biological substances

== ENCOUNTER → 2020-04-02 | Outpatient (CLI) | payer MEDICARE ==
[2020-04-02 14:20] LABS: BASO % 0.5 % (0.0-1.0); EOS # 0.2 10*3/uL (0.0-0.4); EOS % 1.8 % (1.0-4.0); HEMATOCRIT 44.9 % (42.0-52.0); LYMPH # 2.4 10*3/uL (1.3-4.4); LYMPH % 27.3 % (27.0-41.0); MEAN CELL VOLUME 87.4 fl (80.0-94.0); MEAN CORPUSCULAR HGB 29.6 pg (27.0-31.0); MEAN CORPUSCULAR HGB CONC 33.9 g/dl (33.0-37.0); MEAN PLATELET VOLUME 11.7 fl (9.6-12.3); MONO # 0.6 10*3/uL (0.1-1.0); MONO % 6.6 % (3.0-9.0); NEUT # 5.6 10*3/uL (2.3-7.9); NEUT % 63.6 % (47.0-73.0); PLATELET COUNT AUTOMATED 169 10*3/uL (130-400); RED BLOOD COUNT 5.14 10*6/uL (4.50-5.90); RED CELL DISTRI WIDTH 11.9 % (0-14.5); WHITE BLOOD COUNT 8.8 10*3/uL (4.8-10.8)
[2020-04-02 14:34] LABS: ALBUMIN 3.9 gm/dl (3.1-4.5); BUN 9 mg/dl (7-24); CHLORIDE 103 mmol/L (98-107); CHOLESTEROL 93 mg/dL (<200); CREATININE 0.79 mg/dL (0.70-1.30); HDL CHOLESTEROL 37 mg/dl (40-60); LDL CHOLESTEROL 42 mg/dL (9-159); SGOT/AST 11 IU/L (3-35); SGPT/ALT 21 U/L (12-78); SODIUM 135 mmol/L (136-145); TOTAL PROTEIN 7.2 gm/dL (6.4-8.2); TRIGLYCERIDES 69 mg/dl (<150); VALPROIC ACID (DEPAKENE) 50.3 ug/ml (50-100); VLDL CHOLESTEROL 14 mg/dL (6-40)
[2020-04-02 14:40] LABS: ALKALINE PHOSPHATASE 95 U/L (45-117)
[2020-04-03 07:09] LABS: VALPROIC ACID, TOTAL 43 ug/mL (50-100)
[2020-04-03 08:11] LABS: HEP B CORE AB TOTAL Negative (Negative); HEP B CORE AB, IGM Negative (Negative); HEPATITIS B SURFACE AB Reactive (.); HEPATITIS B SURFACE AG Negative (Negative); HEPATITIS Be ANTIGEN Negative (Negative)
[2020-04-03 17:10] LABS: AB TO HEPATITIS Be AG Negative (Negative)
[2020-04-04 15:10] LABS: FREE VALPROIC ACID (DEPAKOTE) 6.3 ug/mL (6.0-22.0)
== END | disposition home or self-care (01) ==
LOC: LAB 13:52
PROVIDERS: Hospitalist
DX: Z11.59 Encounter for screening for other viral diseases (principal); E11.9 Type 2 diabetes mellitus without complications; R63.4 Abnormal weight loss; E78.2 Mixed hyperlipidemia; F31.9 Bipolar disorder, unspecified

== ENCOUNTER → 2020-04-11 | Outpatient (CLI) | payer MEDICARE | END | disposition home or self-care (01) | LOC: RESCLI 01:44 | DX: E11.9 Type 2 diabetes mellitus without complications (principal); E78.2 Mixed hyperlipidemia; I10 Essential (primary) hypertension; F31.9 Bipolar disorder, unspecified; F20.0 Paranoid schizophrenia; G62.9 Polyneuropathy, unspecified; F51.05 Insomnia due to other mental disorder; R63.4 Abnormal weight loss; F17.200 Nicotine dependence, unspecified, uncomplicated; Z88.8 Allergy status to other drugs, medicaments and biological substances; Z79.84 Long term (current) use of oral hypoglycemic drugs; Z79.899 Other long term (current) drug therapy ==

== ENCOUNTER → 2020-04-18 | Outpatient (CLI) | payer MEDICARE | LOC: D 09:34 | DX: E11.9 Type 2 diabetes mellitus without complications (principal) ==

== ENCOUNTER 2020-05-14 18:33 | Emergency (ER) | payer MEDICARE | END 2020-05-14 20:59 | disposition home or self-care (01) | LOC: ED 18:33 | DX: S66.911A Strain of unspecified muscle, fascia and tendon at wrist and hand level, right hand, initial encounter (principal); F17.200 Nicotine dependence, unspecified, uncomplicated; Z88.8 Allergy status to other drugs, medicaments and biological substances; Z79.899 Other long term (current) drug therapy; W18.39XA Other fall on same level, initial encounter; Y93.89 Activity, other specified; Y92.89 Other specified places as the place of occurrence of the external cause; Y99.8 Other external cause status ==

== ENCOUNTER → 2020-05-22 | Outpatient (CLI) | payer MEDICARE ==
[2020-05-22 10:08] LABS: BASO % 0.5 % (0.0-1.0); EOS # 0.3 10*3/uL (0.0-0.4); EOS % 4.4 % (1.0-4.0); HEMATOCRIT 45.7 % (42.0-52.0); LYMPH # 1.3 10*3/uL (1.3-4.4); MEAN CELL VOLUME 89.6 fl (80.0-94.0); MEAN CORPUSCULAR HGB 29.8 pg (27.0-31.0); MEAN CORPUSCULAR HGB CONC 33.3 g/dl (33.0-37.0); MEAN PLATELET VOLUME 10.5 fl (9.6-12.3); MONO # 0.9 10*3/uL (0.1-1.0); MONO % 14.1 % (3.0-9.0); NEUT # 3.6 10*3/uL (2.3-7.9); NEUT % 58.8 % (47.0-73.0); PLATELET COUNT AUTOMATED 130 10*3/uL (130-400); RED CELL DISTRI WIDTH 13.2 % (0-14.5); WHITE BLOOD COUNT 6.1 10*3/uL (4.8-10.8)
[2020-05-22 10:35] LABS: BUN 13 mg/dl (7-24); CHLORIDE 106 mmol/L (98-107); CREATININE 0.82 mg/dL (0.70-1.30); SODIUM 136 mmol/L (136-145)
== END | disposition home or self-care (01) ==
LOC: RESCLI 08:57
PROVIDERS: ATTEND Internal Medicine
DX: R63.4 Abnormal weight loss (principal); R20.2 Paresthesia of skin; F10.10 Alcohol abuse, uncomplicated; E11.9 Type 2 diabetes mellitus without complications; F20.0 Paranoid schizophrenia; F17.200 Nicotine dependence, unspecified, uncomplicated; Z79.84 Long term (current) use of oral hypoglycemic drugs; Z79.899 Other long term (current) drug therapy; Z88.8 Allergy status to other drugs, medicaments and biological substances

== ENCOUNTER 2020-05-25 21:42 | Emergency (ER) | payer MEDICARE ==
[~2020-05-25] VITALS: Wt 61.2 kg
[2020-05-25 22:42] LABS: BASO % 0.3 % (0.0-1.0); EOS # 0.1 10*3/uL (0.0-0.4); EOS % 0.8 % (1.0-4.0); LYMPH # 2.5 10*3/uL (1.3-4.4); LYMPH % 21.3 % (27.0-41.0); MEAN CELL VOLUME 87.5 fl (80.0-94.0); MEAN CORPUSCULAR HGB 29.8 pg (27.0-31.0); MEAN PLATELET VOLUME 10.4 fl (9.6-12.3); MONO # 1.1 10*3/uL (0.1-1.0); MONO % 9.1 % (3.0-9.0); NEUT # 7.9 10*3/uL (2.3-7.9); NEUT % 68.2 % (47.0-73.0); PLATELET COUNT AUTOMATED 196 10*3/uL (130-400); RED BLOOD COUNT 5.37 10*6/uL (4.50-5.90); RED CELL DISTRI WIDTH 13.1 % (0-14.5); WHITE BLOOD COUNT 11.7 10*3/uL (4.8-10.8)
[2020-05-25 22:51] LABS: URINE AMPHETAMINES < 1000 (1000ng/ml); URINE BARBITURATES < 200 (200ng/ml); URINE BENZODIAZEPINES < 200 (200ng/ml); URINE CANNABINOIDS (THC) > 50 (50ng/ml); URINE COCAINE < 300 (300ng/ml); URINE METHADONE < 300 (300ng/ml); URINE OPIATES < 300 (300ng/ml)
[2020-05-25 22:54] LABS: URINE PHENCYCLIDINE < 25 (25ng/ml)
[2020-05-25 22:58] LABS: ALBUMIN 4.1 gm/dl (3.1-4.5); ALKALINE PHOSPHATASE 93 U/L (45-117); BUN 10 mg/dl (7-24); CHLORIDE 103 mmol/L (98-107); CREATININE 0.73 mg/dL (0.70-1.30); POTASSIUM 3.9 mmol/L (3.5-5.1); SGOT/AST 15 IU/L (3-35); SGPT/ALT 33 U/L (12-78); SODIUM 133 mmol/L (136-145)
[2020-05-25 23:02] LABS: ACETAMINOPHEN (TYLENOL) < 5.0 ug/ml (10-30); ETHYL ALCOHOL < 3.0 mg/dl (<3)
[2020-05-25 23:12] LABS: BILIRUBIN NEGATIVE; BLOOD NEGATIVE (NEGATIVE); CLARITY CLEAR (CLEAR); COLOR YELLOW (YELLOW); GLUCOSE NEGATIVE; KETONE 2+; LEUKO ESTERASE NEGATIVE (NEGATIVE); NITRITE NEGATIVE (NEGATIVE); SPECIFIC GRAVITY < 1.005 (1.001-1.030)
[2020-05-25 23:22] LABS: RBC 0-2 rbc/hpf (0-2); WBC 0-2 wbc/hpf (0-5)
== END 2020-05-26 08:23 | disposition home or self-care (01) ==
LOC: ED 21:42
PROVIDERS: Emergency Medicine
DX: F32.9 Major depressive disorder, single episode, unspecified (principal); I10 Essential (primary) hypertension; J45.909 Unspecified asthma, uncomplicated; F17.200 Nicotine dependence, unspecified, uncomplicated; Z88.8 Allergy status to other drugs, medicaments and biological substances; Z79.899 Other long term (current) drug therapy; Z79.84 Long term (current) use of oral hypoglycemic drugs

== ENCOUNTER 2020-05-29 09:25 | Emergency (ER) | payer MEDICARE ==
[~2020-05-29] VITALS: Ht 167.6 cm; Wt 61.2 kg
[2020-05-29 09:55] LABS: BASO # 0.1 10*3/uL (0.0-0.1); BASO % 0.8 % (0.0-1.0); EOS # 0.1 10*3/uL (0.0-0.4); EOS % 0.6 % (1.0-4.0); HEMATOCRIT 47.9 % (42.0-52.0); LYMPH # 2.4 10*3/uL (1.3-4.4); LYMPH % 23.1 % (27.0-41.0); MEAN CELL VOLUME 88.4 fl (80.0-94.0); MEAN CORPUSCULAR HGB 29.9 pg (27.0-31.0); MEAN CORPUSCULAR HGB CONC 33.8 g/dl (33.0-37.0); MEAN PLATELET VOLUME 10.1 fl (9.6-12.3); MONO # 0.9 10*3/uL (0.1-1.0); MONO % 8.4 % (3.0-9.0); NEUT % 66.7 % (47.0-73.0); PLATELET COUNT AUTOMATED 292 10*3/uL (130-400); RED BLOOD COUNT 5.42 10*6/uL (4.50-5.90); WHITE BLOOD COUNT 10.5 10*3/uL (4.8-10.8)
[2020-05-29 10:12] LABS: ACETAMINOPHEN (TYLENOL) < 5.0 ug/ml (10-30); ALBUMIN 4.3 gm/dl (3.1-4.5); ALKALINE PHOSPHATASE 94 U/L (45-117); BUN 8 mg/dl (7-24); CHLORIDE 103 mmol/L (98-107); CREATININE 0.89 mg/dL (0.70-1.30); POTASSIUM 3.8 mmol/L (3.5-5.1); SGOT/AST 13 IU/L (3-35); SGPT/ALT 28 U/L (12-78); SODIUM 136 mmol/L (136-145); TOTAL PROTEIN 7.7 gm/dL (6.4-8.2)
[2020-05-29 10:22] LABS: VALPROIC ACID (DEPAKENE) 4.8 ug/ml (50-100)
[2020-05-29 12:34] LABS: BILIRUBIN 1+; BLOOD NEGATIVE (NEGATIVE); CLARITY CLEAR (CLEAR); COLOR DARK YELLOW (YELLOW); GLUCOSE NEGATIVE; KETONE NEGATIVE; LEUKO ESTERASE NEGATIVE (NEGATIVE); NITRITE NEGATIVE (NEGATIVE); SPECIFIC GRAVITY > 1.030 (1.001-1.030)
[2020-05-29 12:37] LABS: URINE AMPHETAMINES < 1000 (1000ng/ml); URINE BARBITURATES < 200 (200ng/ml); URINE BENZODIAZEPINES < 200 (200ng/ml); URINE CANNABINOIDS (THC) > 50 (50ng/ml); URINE COCAINE < 300 (300ng/ml); URINE OPIATES < 300 (300ng/ml)
[2020-05-29 12:42] LABS: URINE METHADONE < 300 (300ng/ml); URINE PHENCYCLIDINE < 25 (25ng/ml)
[2020-05-29 12:46] LABS: BACTERIA 2+; CALCIUM OXALATE CRYSTALS 2+; MUCOUS 2+
== END 2020-05-29 15:27 ==
LOC: ED 09:25
PROVIDERS: Emergency Medicine
DX: F25.9 Schizoaffective disorder, unspecified (principal); Z88.8 Allergy status to other drugs, medicaments and biological substances; Z79.899 Other long term (current) drug therapy

== ENCOUNTER → 2020-07-21 | Outpatient (CLI) | payer MEDICARE | END | disposition home or self-care (01) | LOC: LAB 13:48 | PROVIDERS: ATTEND Internal Medicine Nephrology | DX: E11.9 Type 2 diabetes mellitus without complications (principal) ==

== ENCOUNTER → 2020-07-22 | Outpatient (CLI) | payer MEDICARE | END | disposition home or self-care (01) | LOC: RESCLI 02:23 | PROVIDERS: ATTEND Internal Medicine | DX: Z23 Encounter for immunization (principal); I10 Essential (primary) hypertension; E78.2 Mixed hyperlipidemia; F20.0 Paranoid schizophrenia; G62.9 Polyneuropathy, unspecified; F10.10 Alcohol abuse, uncomplicated; Z72.0 Tobacco use ==

== ENCOUNTER → 2020-07-24 | Outpatient (CLI) | payer MEDICARE ==
[2020-07-24 09:46] LABS: CHOLESTEROL 93 mg/dL (<200); HDL CHOLESTEROL 55 mg/dl (40-60); LDL CHOLESTEROL 24 mg/dL (9-159); TRIGLYCERIDES 71 mg/dl (<150); VLDL CHOLESTEROL 14 mg/dL (6-40)
== END | disposition home or self-care (01) ==
LOC: LAB 07:48 → CT 08:00
PROVIDERS: Hospitalist; ATTEND Internal Medicine Nephrology
DX: E78.2 Mixed hyperlipidemia (principal); R63.4 Abnormal weight loss

== ENCOUNTER 2020-08-16 15:22 | Emergency (ER) | payer MEDICARE ==
[~2020-08-16] VITALS: Ht 167.6 cm; Wt 72.6 kg
[2020-08-16 16:11] LABS: ALBUMIN 3.6 gm/dl (3.1-4.5); ALKALINE PHOSPHATASE 71 U/L (45-117); BUN 7 mg/dl (7-24); CHLORIDE 109 mmol/L (98-107); CREATININE 0.77 mg/dL (0.70-1.30); POTASSIUM 3.7 mmol/L (3.5-5.1); SGOT/AST 13 IU/L (3-35); SGPT/ALT 19 U/L (12-78); SODIUM 141 mmol/L (136-145); TOTAL PROTEIN 7.2 gm/dL (6.4-8.2)
[2020-08-16 16:12] LABS: FREE T4 0.84 ng/dl (0.76-1.46)
[2020-08-16 16:19] LABS: THYROID STIM HORMONE (HS) 0.727 uIU/ml (0.358-4.75)
[2020-08-16 16:59] LABS: URINE AMPHETAMINES < 1000 (1000ng/ml); URINE BARBITURATES < 200 (200ng/ml); URINE BENZODIAZEPINES < 200 (200ng/ml); URINE CANNABINOIDS (THC) < 50 (50ng/ml); URINE COCAINE < 300 (300ng/ml); URINE METHADONE < 300 (300ng/ml); URINE OPIATES < 300 (300ng/ml)
[2020-08-16 17:05] LABS: URINE PHENCYCLIDINE < 25 (25ng/ml)
== END 2020-08-16 18:22 | disposition home or self-care (01) ==
LOC: ED 15:22
PROVIDERS: Student in an Organized Health Care Education/Training Program
DX: I47.1 Supraventricular tachycardia (principal); F41.9 Anxiety disorder, unspecified; F17.200 Nicotine dependence, unspecified, uncomplicated; Z88.8 Allergy status to other drugs, medicaments and biological substances; Z79.899 Other long term (current) drug therapy

== ENCOUNTER → 2020-10-01 | Outpatient (CLI) | payer MEDICARE | END | disposition home or self-care (01) | LOC: RESCLI 01:19 | PROVIDERS: ATTEND Student in an Organized Health Care Education/Training Program | DX: F20.0 Paranoid schizophrenia (principal); F10.10 Alcohol abuse, uncomplicated; E11.9 Type 2 diabetes mellitus without complications; F17.200 Nicotine dependence, unspecified, uncomplicated; F51.05 Insomnia due to other mental disorder; Z71.6 Tobacco abuse counseling; Z79.899 Other long term (current) drug therapy; Z88.8 Allergy status to other drugs, medicaments and biological substances ==

== ENCOUNTER 2021-01-16 22:02 | Emergency (ER) | payer MEDICARE ==
[~2021-01-16] VITALS: Ht 167.6 cm; Wt 81.6 kg
== END 2021-01-16 23:24 | disposition home or self-care (01) ==
LOC: ED 22:02
DX: E11.65 Type 2 diabetes mellitus with hyperglycemia (principal); F41.9 Anxiety disorder, unspecified; F31.9 Bipolar disorder, unspecified; E78.5 Hyperlipidemia, unspecified; F17.200 Nicotine dependence, unspecified, uncomplicated; Z88.8 Allergy status to other drugs, medicaments and biological substances; Z79.899 Other long term (current) drug therapy; Z98.890 Other specified postprocedural states; Z79.84 Long term (current) use of oral hypoglycemic drugs

== ENCOUNTER → 2021-02-16 | Outpatient (CLI) | payer MEDICARE | END | disposition home or self-care (01) | LOC: RESCLI 01:47 | PROVIDERS: ATTEND Internal Medicine Nephrology | DX: F10.10 Alcohol abuse, uncomplicated (principal); F31.9 Bipolar disorder, unspecified; F20.0 Paranoid schizophrenia; F51.05 Insomnia due to other mental disorder; F17.200 Nicotine dependence, unspecified, uncomplicated; I10 Essential (primary) hypertension; E11.9 Type 2 diabetes mellitus without complications; Z71.6 Tobacco abuse counseling; Z79.899 Other long term (current) drug therapy; Z88.8 Allergy status to other drugs, medicaments and biological substances ==

== ENCOUNTER 2021-03-31 21:20 | Emergency (ER) | payer MEDICARE ==
[~2021-03-31] VITALS: Ht 167.6 cm; Wt 81.6 kg
== END 2021-03-31 23:59 | disposition home or self-care (01) ==
LOC: ED 21:20
DX: Z00.00 Encounter for general adult medical examination without abnormal findings (principal); F17.200 Nicotine dependence, unspecified, uncomplicated; Z88.8 Allergy status to other drugs, medicaments and biological substances; Z79.899 Other long term (current) drug therapy

== ENCOUNTER 2021-05-15 17:56 | Emergency (ER) | payer MEDICARE ==
[~2021-05-15] VITALS: Ht 167.6 cm; Wt 82.6 kg
[2021-05-15] MEDS ORDERED: ANUSOL-HC25 MG R (18:45)
== END 2021-05-15 22:22 | disposition home or self-care (01) ==
LOC: ED 17:56
DX: K64.8 Other hemorrhoids (principal); F17.200 Nicotine dependence, unspecified, uncomplicated; Z88.8 Allergy status to other drugs, medicaments and biological substances; Z79.899 Other long term (current) drug therapy

== ENCOUNTER 2021-09-08 17:25 | Emergency (ER) | payer MEDICARE ==
[~2021-09-08] VITALS: Ht 167.6 cm
[~2021-09-08 17:25] MED LIST changes: +ANUSOL-HC25 MG R
[2021-09-08] MEDS ORDERED: HYDROXYZINE HCL25 MG PO (22:58)
[2021-09-08] MEDS ORDERED: NAPROSYN500 MG PO (22:58)
== END 2021-09-08 20:14 | disposition left against medical advice (07) ==
LOC: ED 17:25
DX: Z53.21 Procedure and treatment not carried out due to patient leaving prior to being seen by health care provider (principal)

== ENCOUNTER 2021-09-08 20:21 | Emergency (ER) | payer MEDICARE ==
[~2021-09-08] VITALS: Ht 167.6 cm; Wt 83.9 kg
[2021-09-08] MEDS ORDERED: HYDROXYZINE HCL25 MG PO (22:58)
[2021-09-08] MEDS ORDERED: NAPROSYN500 MG PO (22:58)
== END 2021-09-08 23:03 | disposition home or self-care (01) ==
LOC: ED 20:21
DX: F41.9 Anxiety disorder, unspecified (principal); F10.929 Alcohol use, unspecified with intoxication, unspecified; Y90.9 Presence of alcohol in blood, level not specified

== ENCOUNTER → 2021-09-24 | Outpatient (CLI) | payer MEDICARE ==
[~2021-09-24] MED LIST changes: +HYDROXYZINE HCL25 MG PO
== END | disposition home or self-care (01) ==
LOC: COVID19 15:30
PROVIDERS: ATTEND Internal Medicine
DX: U07.1 COVID-19 (principal)

== ENCOUNTER → 2021-10-06 | Outpatient (CLI) | payer MEDICARE ==
[2021-10-06 12:37] LABS: BASO # 0.1 10*3/uL (0.0-0.1); EOS # 0.2 10*3/uL (0.0-0.4); EOS % 2.3 % (1.0-4.0); HEMATOCRIT 44.1 % (42.0-52.0); LYMPH # 2.2 10*3/uL (1.3-4.4); MEAN CELL VOLUME 87.8 fl (80.0-94.0); MEAN CORPUSCULAR HGB 29.5 pg (27.0-31.0); MEAN CORPUSCULAR HGB CONC 33.6 g/dl (33.0-37.0); MEAN PLATELET VOLUME 10.5 fl (9.6-12.3); MONO # 0.7 10*3/uL (0.1-1.0); MONO % 9.3 % (3.0-9.0); NEUT # 3.9 10*3/uL (2.3-7.9); NEUT % 54.8 % (47.0-73.0); PLATELET COUNT AUTOMATED 237 10*3/uL (130-400); RED BLOOD COUNT 5.02 10*6/uL (4.50-5.90); RED CELL DISTRI WIDTH 11.9 % (0-14.5); WHITE BLOOD COUNT 7.1 10*3/uL (4.8-10.8)
[2021-10-06 13:01] LABS: ALBUMIN 3.7 gm/dl (3.1-4.5); ALKALINE PHOSPHATASE 81 U/L (45-117); BUN 12 mg/dl (7-24); CHLORIDE 106 mmol/L (98-107); CHOLESTEROL 176 mg/dL (<200); CREATININE 0.85 mg/dL (0.70-1.30); LDL CHOLESTEROL 107 mg/dL (9-159); POTASSIUM 4.6 mmol/L (3.5-5.1); SGOT/AST 23 IU/L (3-35); SGPT/ALT 40 U/L (12-78); SODIUM 137 mmol/L (136-145); TOTAL PROTEIN 7.5 gm/dL (6.4-8.2); TRIGLYCERIDES 142 mg/dl (<150)
== END | disposition home or self-care (01) ==
LOC: RESCLI 00:16
PROVIDERS: Hospitalist; ATTEND Emergency Medicine
DX: F31.9 Bipolar disorder, unspecified (principal); F20.0 Paranoid schizophrenia; F51.05 Insomnia due to other mental disorder; F10.10 Alcohol abuse, uncomplicated; F17.200 Nicotine dependence, unspecified, uncomplicated; E66.9 Obesity, unspecified; Z88.8 Allergy status to other drugs, medicaments and biological substances; Z79.899 Other long term (current) drug therapy

== ENCOUNTER 2022-03-13 19:35 | Emergency (ER) | payer MEDICARE ==
[~2022-03-13] VITALS: Ht 167.6 cm; Wt 95.7 kg
[2022-03-13 20:08] LABS: BASO # 0.1 10*3/uL (0.0-0.1); BASO % 0.7 % (0.0-1.0); EOS # 0.1 10*3/uL (0.0-0.4); EOS % 1.2 % (1.0-4.0); HEMATOCRIT 44.4 % (42.0-52.0); LYMPH # 2.3 10*3/uL (1.3-4.4); LYMPH % 24.8 % (27.0-41.0); MEAN CELL VOLUME 88.1 fl (80.0-94.0); MEAN CORPUSCULAR HGB 29.6 pg (27.0-31.0); MEAN CORPUSCULAR HGB CONC 33.6 g/dl (33.0-37.0); MEAN PLATELET VOLUME 10.7 fl (9.6-12.3); MONO # 0.7 10*3/uL (0.1-1.0); MONO % 7.2 % (3.0-9.0); NEUT % 65.6 % (47.0-73.0); PLATELET COUNT AUTOMATED 217 10*3/uL (130-400); RED BLOOD COUNT 5.04 10*6/uL (4.50-5.90); RED CELL DISTRI WIDTH 12.3 % (0-14.5); WHITE BLOOD COUNT 9.2 10*3/uL (4.8-10.8)
[2022-03-13 20:24] LABS: ALKALINE PHOSPHATASE 72 U/L (45-117); BUN 9 mg/dl (7-24); CHLORIDE 106 mmol/L (98-107); CREATININE 0.71 mg/dL (0.70-1.30); SGOT/AST 23 IU/L (3-35); SGPT/ALT 27 U/L (12-78); SODIUM 140 mmol/L (136-145); TOTAL PROTEIN 7.1 gm/dL (6.4-8.2)
== END 2022-03-13 21:04 | disposition home or self-care (01) ==
LOC: ED 19:35
PROVIDERS: Internal Medicine
DX: K62.5 Hemorrhage of anus and rectum (principal)

== ENCOUNTER 2022-03-23 22:36 | Emergency (ER) | payer MEDICARE ==
[~2022-03-23] VITALS: Ht 167.6 cm; Wt 95.7 kg
[2022-03-24] MEDS ORDERED: CEPHALEXIN500 M1 PO (00:19)
[2022-03-24] MEDS ORDERED: SEPTDS PO (00:19)
== END 2022-03-24 00:40 | disposition home or self-care (01) ==
LOC: ED 22:36
DX: L02.416 Cutaneous abscess of left lower limb (principal); E11.9 Type 2 diabetes mellitus without complications; E78.5 Hyperlipidemia, unspecified; I10 Essential (primary) hypertension; Z88.8 Allergy status to other drugs, medicaments and biological substances

== ENCOUNTER 2022-06-02 20:23 | Emergency (ER) | payer MEDICARE ==
[~2022-06-02 20:23] MED LIST changes: +CEPHALEXIN500 M1 PO; +SEPTDS PO
== END 2022-06-02 20:53 | disposition left against medical advice (07) ==
LOC: ED 20:23
DX: R03.0 Elevated blood-pressure reading, without diagnosis of hypertension (principal); Z53.21 Procedure and treatment not carried out due to patient leaving prior to being seen by health care provider

== ENCOUNTER → 2022-06-04 | Outpatient (CLI) | payer MEDICARE | END | disposition home or self-care (01) | LOC: RESCLI 13:52 | PROVIDERS: ATTEND Internal Medicine | DX: F20.0 Paranoid schizophrenia (principal); F51.02 Adjustment insomnia; F31.9 Bipolar disorder, unspecified; I10 Essential (primary) hypertension; F17.200 Nicotine dependence, unspecified, uncomplicated; E66.01 Morbid (severe) obesity due to excess calories; E11.9 Type 2 diabetes mellitus without complications; Z72.89 Other problems related to lifestyle; Z88.8 Allergy status to other drugs, medicaments and biological substances; Z98.890 Other specified postprocedural states; Z79.899 Other long term (current) drug therapy ==

== ENCOUNTER → 2022-08-18 | Outpatient (CLI) | payer MEDICARE ==
[2022-08-18 13:46] LABS: BASO % 0.7 % (0.0-1.0); EOS # 0.2 10*3/uL (0.0-0.4); EOS % 2.5 % (1.0-4.0); HEMATOCRIT 44.8 % (42.0-52.0); LYMPH # 2.1 10*3/uL (1.3-4.4); LYMPH % 36.2 % (27.0-41.0); MEAN CELL VOLUME 89.4 fl (80.0-94.0); MEAN CORPUSCULAR HGB 29.9 pg (27.0-31.0); MEAN CORPUSCULAR HGB CONC 33.5 g/dl (33.0-37.0); MEAN PLATELET VOLUME 10.3 fl (9.6-12.3); MONO # 0.4 10*3/uL (0.1-1.0); MONO % 6.1 % (3.0-9.0); NEUT # 3.2 10*3/uL (2.3-7.9); NEUT % 53.7 % (47.0-73.0); PLATELET COUNT AUTOMATED 249 10*3/uL (130-400); RED BLOOD COUNT 5.01 10*6/uL (4.50-5.90); RED CELL DISTRI WIDTH 11.9 % (0-14.5); WHITE BLOOD COUNT 5.9 10*3/uL (4.8-10.8)
[2022-08-18 14:06] LABS: ALKALINE PHOSPHATASE 86 U/L (46-116); BUN 9 mg/dl (9-23); CHLORIDE 104 mmol/L (98-107); CHOLESTEROL 158 mg/dL (<200); CREATININE 0.86 mg/dL (0.70-1.30); LDL CHOLESTEROL 100 mg/dL (9-159); POTASSIUM 4.4 mmol/L (3.4-5.1); SGPT/ALT 29 U/L (10-49); SODIUM 137 mmol/L (136-145); TOTAL PROTEIN 7.2 gm/dL (6.0-8.0); TRIGLYCERIDES 116 mg/dl (<150); VALPROIC ACID (DEPAKENE) 60.4 ug/ml (50-100)
== END | disposition home or self-care (01) ==
LOC: LAB 13:16
PROVIDERS: ATTEND Nurse Practitioner Family
DX: Z79.899 Other long term (current) drug therapy (principal)

== ENCOUNTER → 2022-11-22 | Outpatient (CLI) | payer MEDICARE | END | disposition home or self-care (01) | LOC: RESCLI 01:32 | PROVIDERS: ATTEND Internal Medicine | DX: F20.0 Paranoid schizophrenia (principal); F31.9 Bipolar disorder, unspecified; F17.200 Nicotine dependence, unspecified, uncomplicated; F10.90 Alcohol use, unspecified, uncomplicated; Z88.8 Allergy status to other drugs, medicaments and biological substances; Z82.49 Family history of ischemic heart disease and other diseases of the circulatory system; Z98.890 Other specified postprocedural states; Z79.899 Other long term (current) drug therapy ==

== ENCOUNTER → 2024-05-22 | Outpatient (CLI) | payer MEDICAID ==
[2024-05-22 10:21] LABS: BASO # 0.1 10*3/uL (0.0-0.1); BASO % 0.7 % (0.0-1.0); EOS # 0.2 10*3/uL (0.0-0.4); EOS % 2.5 % (1.0-4.0); HEMATOCRIT 44.8 % (42.0-52.0); LYMPH % 33.2 % (27.0-41.0); MEAN CELL VOLUME 86.5 fl (80.0-94.0); MEAN CORPUSCULAR HGB 29.5 pg (27.0-31.0); MEAN CORPUSCULAR HGB CONC 34.2 g/dl (33.0-37.0); MEAN PLATELET VOLUME 10.5 fl (9.6-12.3); MONO # 0.9 10*3/uL (0.1-1.0); MONO % 10.5 % (3.0-9.0); NEUT # 4.7 10*3/uL (2.3-7.9); NEUT % 52.9 % (47.0-73.0); PLATELET COUNT AUTOMATED 257 10*3/uL (130-400); RED BLOOD COUNT 5.18 10*6/uL (4.50-5.90); RED CELL DISTRI WIDTH 12.8 % (0-14.5); WHITE BLOOD COUNT 8.9 10*3/uL (4.8-10.8)
[2024-05-22 10:43] LABS: ALKALINE PHOSPHATASE 89 U/L (46-116); BUN 7 mg/dl (9-23); CHLORIDE 107 mmol/L (98-107); CHOLESTEROL 147 mg/dL (<200); LDL CHOLESTEROL 71 mg/dL (9-159); POTASSIUM 4.3 mmol/L (3.4-5.1); SGPT/ALT 22 U/L (5-49); TOTAL PROTEIN 7.2 gm/dL (6.0-8.0); TRIGLYCERIDES 201 mg/dl (<150)
== END | disposition home or self-care (01) ==
LOC: RESCLI 08:51
PROVIDERS: Student in an Organized Health Care Education/Training Program; ATTEND Internal Medicine
DX: E66.9 Obesity, unspecified (principal); E55.9 Vitamin D deficiency, unspecified; E11.9 Type 2 diabetes mellitus without complications; F31.9 Bipolar disorder, unspecified; F20.0 Paranoid schizophrenia; F10.90 Alcohol use, unspecified, uncomplicated; Z88.8 Allergy status to other drugs, medicaments and biological substances; Z82.49 Family history of ischemic heart disease and other diseases of the circulatory system; Z82.3 Family history of stroke; Z98.890 Other specified postprocedural states; Z79.899 Other long term (current) drug therapy; Y90.9 Presence of alcohol in blood, level not specified; Z68.30 Body mass index [BMI] 30.0-30.9, adult

== ENCOUNTER 2024-06-12 08:31 | Emergency (ER) | payer MEDICAID ==
[~2024-06-12] VITALS: Ht 170.1 cm; Wt 92.1 kg
[2024-06-12] MEDS ORDERED: IBUPROFEN 400 MG TAB PO ONE (09:20)
[2024-06-12] MEDS ORDERED: ACETAMINOPHEN 325 MG TAB PO ONE (09:20)
[2024-06-12] MEDS ORDERED: Motrin,Rufen400 MG PO (09:40)
[2024-06-12] MEDS ORDERED: TYLENOL EXTRA500 MG PO (09:40)
== END 2024-06-12 10:20 | disposition home or self-care (01) ==
LOC: ED 08:31
DX: M54.50 Low back pain, unspecified (principal); F41.9 Anxiety disorder, unspecified; F31.9 Bipolar disorder, unspecified; E11.9 Type 2 diabetes mellitus without complications; E78.00 Pure hypercholesterolemia, unspecified; E78.5 Hyperlipidemia, unspecified; I10 Essential (primary) hypertension; F17.200 Nicotine dependence, unspecified, uncomplicated; F12.10 Cannabis abuse, uncomplicated; Z88.8 Allergy status to other drugs, medicaments and biological substances

== ENCOUNTER → 2025-01-17 | Outpatient (CLI) | payer MEDICARE ==
[~2025-01-17] MED LIST changes: +Motrin,Rufen400 MG PO; +TYLENOL EXTRA500 MG PO
[2025-01-17 11:05] LABS: ALKALINE PHOSPHATASE 83 U/L (46-116); SGPT/ALT 23 U/L (5-49); TOTAL PROTEIN 6.9 gm/dL (6.0-8.0)
== END | disposition home or self-care (01) ==
LOC: LAB 10:18
PROVIDERS: ATTEND Nurse Practitioner Family
DX: Z79.899 Other long term (current) drug therapy (principal)

== ENCOUNTER 2025-03-24 22:28 | Emergency (ER) | payer MEDICARE ==
[~2025-03-24] VITALS: Ht 172.7 cm; Wt 99.8 kg
[2025-03-24] MEDS ORDERED: PENICILLIN VK500 MG PO (23:45)
[2025-03-24] MEDS ORDERED: PENICILLIN V POTASSIUM 500 MG TAB PO ONE (23:50)
== END 2025-03-24 23:51 | disposition home or self-care (01) ==
LOC: ED 22:28
DX: K02.9 Dental caries, unspecified (principal); F41.9 Anxiety disorder, unspecified; F31.9 Bipolar disorder, unspecified; E11.9 Type 2 diabetes mellitus without complications; E78.5 Hyperlipidemia, unspecified; I10 Essential (primary) hypertension; F25.9 Schizoaffective disorder, unspecified; Z88.8 Allergy status to other drugs, medicaments and biological substances; Z79.899 Other long term (current) drug therapy; Z87.891 Personal history of nicotine dependence

== ENCOUNTER → 2025-04-26 | Outpatient (CLI) | payer MEDICARE ==
[~2025-04-26] MED LIST changes: +PENICILLIN VK500 MG PO
[2025-04-26 13:07] LABS: SGPT/ALT 25 U/L (5-49); VALPROIC ACID (DEPAKENE) 58.9 ug/ml (50-100)
== END | disposition home or self-care (01) ==
LOC: LAB 11:52
PROVIDERS: ATTEND Nurse Practitioner Family
DX: Z79.899 Other long term (current) drug therapy (principal)

== ENCOUNTER 2025-07-03 18:35 | Emergency (ER) | payer MEDICARE ==
[~2025-07-03] VITALS: Ht 170.1 cm; Wt 96.7 kg
[2025-07-03] MEDS ORDERED: CLINDAMYCIN HC300 MG PO (18:50)
[2025-07-03] MEDS ORDERED: TYLE3UD PO (18:50)
[2025-07-03] MEDS ORDERED: CLINDAMYCIN HCL 300 MG CAPSULE PO ONE (19:00)
[2025-07-03] MEDS ORDERED: Acetaminophen/Hydrocodone Bi 3 TAB PACK PO PRN (19:00)
== END 2025-07-03 19:16 | disposition home or self-care (01) ==
LOC: ED 18:35
DX: K04.7 Periapical abscess without sinus (principal); K02.9 Dental caries, unspecified; F17.200 Nicotine dependence, unspecified, uncomplicated; Z88.8 Allergy status to other drugs, medicaments and biological substances; Z79.899 Other long term (current) drug therapy